=== PATIENT | female | born 1990 | race Caucasian/White ===

== ENCOUNTER 2022-05-28 15:58 | Outpatient (CLI) | payer OTHER, MEDICAID, SELFPAY ==
[2022-05-28] VITALS (13 sets, daily range): BP systolic 118–129; BP diastolic 62–85; PULSE 90–125; RESP 16–18; TEMP 36.6–36.8; O2SAT 93–99
--- NOTE | 2022-05-28 16:47 | CRLHL7_ITS ---
For Patients: As a result of the Century Cures Act, medical imaging exams and procedure reports are released immediately into your electronic medical record. You may view this report before your referring provider. If you have questions, please contact your health care provider. INDICATION: Cramping COMPARISON: none TECHNIQUE: Real time hernandez scale imaging of the fetus was performed. Without non-stress testing. FINDINGS: Sonographic imaging demonstrates a single living intrauterine gestation. Fetus demonstrates a regular cardiac rate of 154 beats per minute. Fetus has a vertex position. The amniotic fluid volume appears normal and there is a single deepest pocket measurement of 4.4 cm. The fetus was active and demonstrated normal breathing movements. There was normal flexion and extension of the trunk and extremities. The cervix is closed and measures 4.2 cm. IMPRESSION: Normal biophysical profile score of 8 out of 8. Closed cervix without funneling. Dictated by Richard Holcomb MD @ 05/28/2022 7:13:43 PM (Electronically Signed)
[2022-05-28 17:23] LABS: Appearance Urine Slightly Cloudy (Clear); Bilirubin Urine 1+ (Negative); Blood Urine Negative (Negative); Glucose Urine Negative (Negative); Ketones Urine 3+ (Negative); Leukocyte Esterase Urine Negative (Negative); Nitrite Urine Negative (Negative); Protein Urine 2+ (Negative); Specific Gravity Urine >= 1.030 (1.000-1.030)
[2022-05-28 17:27] LABS: Clue Cells <20% Clue Cells Seen (None Seen); Trichomonas No Trichomonas Seen (None Seen); Yeast No Yeast Seen (None Seen)
[2022-05-28 17:35] LABS: Color Urine Dark yellow (Yellow)
[2022-05-28 17:44] LABS: RBC Urine 0-2 (0-2); Squamous Epithelial Cell Urine Moderate (None-Few)
[2022-05-28 17:45] LABS: Bacteria Urine Few
[2022-05-28 17:46] LABS: Fetal Fibronectin* Negative (Negative)
[2022-05-28 17:49] LABS: Basophils Absolute Auto 0.02 K/uL (0.00-0.30); Basophils Percent Auto 0.2 % (0.0-3.0); Eosinophils Absolute Auto 0.07 K/uL (0.00-0.50); Eosinophils Percent Auto 0.8 % (0.0-7.0); Hematocrit 42.1 % (33.0-51.0); Hemoglobin* 14.4 gm/dL (12.0-16.0); Immature Granulocytes Abs Auto 0.09 K/uL (0.00-0.30); Immature Granulocytes Pct Auto 1.1 %; Lymphocytes Percent Auto 6.8 % (20-44); Mean Corpuscular HGB Conc 34 gm/dL (32-36); Mean Corpuscular Hemoglobin 28 pg (26-34); Mean Corpuscular Volume 83 fL (80-100); Monocytes Percent Auto 5.1 % (0.0-11.0); Platelet Count* 198 K/uL (140-440); RDW Coefficient of Variation % 13.2 % (11.5-15.5); Red Blood Count 5.09 m/uL (4.00-5.20); White Blood Count* 8.43 K/uL (4.50-11.00)
[2022-05-28 17:51] LABS: Slide Review Reflex No
[2022-05-28 18:04] LABS: Albumin* 4.1 g/dL (3.3-5.0); Chloride* 107 mmol/L (96-114); Potassium* 3.6 mmol/L (3.6-5.1); Sodium* 135 mmol/L (135-149)
[2022-05-28 18:06] LABS: Aspartate Amino Transferase* 22 U/L (12-35); Carbon Dioxide* 18 mmol/L (20-32); Creatinine* 0.4 mg/dL (0.5-1.5); Estimated Glomerular Filt Rate 134 ml/min; Total Protein* 8.1 g/dL (6.0-8.3)
[2022-05-28 18:07] LABS: Alanine Aminotransferase* 15 U/L (4-35); Alkaline Phosphatase* 89 U/L (40-150); Blood Urea Nitrogen* 7 mg/dL (5-24); Calcium* 8.9 mg/dL (8.4-10.6); Glucose* 84 mg/dL (60-115)
[2022-05-28] MEDS: ONDANSETRON 2 MG/ML inj 4 MG IV (18:18)
[2022-05-28] MEDS: LACTATED RINGERS 1000 ML 1,000 ML 300 ML IV (18:19)
--- NOTE | 2022-05-28 18:19 | P.OBHP_ITS ---
OB - H&P; HPI Antepartum History of Present Illness Time Seen by Provider: 18:19 Date Seen: 05/28/22 Chief complaint: Maternity Narrative: Mari Quispe is a 32 year old 3 para 2 at 31w6d gestation who presents with abdominal pain, back pain, vomiting. Patient states that she was in her usual state of health yesterday and had a baby shower. Today she woke with abdominal and back pain. She reports the abdominal pain is crampy. The back pain starts on the upper left and radiates to the lower mid back. She has vomited x 3 today. No diarrhea. No known sick contacts. She has not had fevers. Patient feels her baby is moving well. Had more vaginal discharge this morning (white) but no irritation/itching. She denies leakage of fluid or bleeding. She has not had intercourse in the last 24 hours. She has no history of labor. Does have history of macrosomia and this baby is measuring 88%ile. She feels like something is just not right. She does not have appetite. has been drinking water but admits her urine is still concentrated. History of Present Dating criteria: based on LMP care: good care Ultrasounds: normal mid trimester US Abnormal ultrasound findings: normal level 2 and echo complications comment: history of macrosomia Medical complications: none Review of Systems Const: Denies: fever or chills Eyes: Denies: change in vision ENMT: Denies: throat pain, neck pain or mouth pain Cardio: Reports: lightheadedness; Denies: chest pain, edema or shortness of breath with exertion Resp: Denies: shortness of breath GI: Reports: abdominal pain, nausea and vomiting; Denies: diarrhea or constipation : Reports: decreased urine ouput; Denies: painful urination, urinary frequency, urinary urgency or blood in urine Musculo: Reports: back pain; Denies: neck pain or extremity swelling Integ/Breast: Denies: rash or itching Neuro: Denies: headache Meds Home Medications and Allergies Allergies Allergy/AdvReac Type Severity Reaction Status Date / Time No Known Drug Allergies Allergy Verified 05/28/22 16:47 OB - H&P: Exam Physical Exam: Vital signs: Temp Pulse Resp BP Pulse Ox 98 F 100 16 118/62 98 05/28/22 16:11 05/28/22 17:46 05/28/22 16:11 05/28/22 17:46 05/28/22 17:43 Constitutional: Constitutional: no acute distress and obese Routine HEENT Exam: Head: Present atraumatic, normal inspection and normocephalic Routine Neck Exam: Neck: Present full ROM Routine Respiratory Exam: Respiratory: Present CTA bilaterally; Absent crackles or rales Routine Cardiovascular Exam: Cardiovascular: RRR, S1 and S2 Routine Abdominal Exam: Abdominal: Present normal bowel sounds, soft and tenderness Comments: minimally tender diffusely. No guarding/rebound Detailed Labor and Delivery Exam: Patient Gravid: Yes Routine Extremities Exam: Extremities: Present full ROM and normal inspection; Absent calf tenderness or joint swelling Routine Back/Spine/Pelvis Exam: Back/Spine: CVA tenderness Comments: Patient had CVA tenderness on left immediately after emesis, recheck CVA tenderness had resolved. NO other midline or paraspinal tenderness Routine Skin Exam: Present intact; Absent erythema Routine Neurological Exam: Present alert and oriented X3 OB - Results Labs Labs: Short CBC 05/28/22 Range/Units 17:42 WBC 8.43 (4.50-11.00) K/uL Hgb 14.4 (12.0-16.0) gm/dL Hct 42.1 (33.0-51.0) % Plt Count 198 (140-440) K/uL BMP 05/28/22 17:42 Sodium 135 Potassium 3.6 Chloride 107 Carbon Dioxide 18 L BUN 7 Creatinine 0.4 L Glucose 84 Calcium 8.9 Liver Function 05/28/22 Range/Units 17:42 Total Bilirubin 1.0 (0.1-1.5) mg/dL AST 22 (12-35) U/L ALT 15 (4-35) U/L Alkaline Phosphatase 89 (40-150) U/L Albumin 4.1 (3.3-5.0) g/dL Urine 05/28/22 Range/Units 16:58 Urine Color Dark yellow (Yellow) Urine Appearance Slightly Cloudy A (Clear) Urine pH 6.0 (5.0-8.5) Ur Specific [place] >= 1.030 (1.000-1.030) Urine Protein 2+ A (Negative) Urine Glucose (UA) Negative (Negative) Imaging OB US: Attestation: I have reviewed the pertinent imaging results. My impression: BPP 8/8. SDP 4.36. Cervix 4.2 cm OB - A/P Antepartum Assessment and Plan (1) Nausea and vomiting: Status: Acute (2) : Status: Acute (3) Abdominal pain affecting : Status: Acute (4) Back pain affecting : Status: Acute Plan Patient presented with abdominal and back pain, nausea, vomiting. She was having more BH contractions, not picked up on toco but reported by patient every 5-10 minutes. Baby initially had minimal variability and no accels. BPP was done and baby was 8/8. SDP was appropriate. Patient had labor rule out-- with negative FFN and cervical length of 4.2 cm. Patient had UA that appears very concentrated, not a very clean catch, but negative LE, Nitrite. Urine culture pending, no urinary symptoms. Patient had CVA tenderness that then resolved. Wet prep negative for infection. Given IV fluids and zofran. We discussed that hydration is very important and that dehydration can cause more contractions. Patient has zofran at home but has not used it yet, will use PRN. Additional Plan Plan: other (Discharge to home. Follow up with Dr Fuentes on )
--- NOTE | 2022-05-28 19:32 | PC.OBNST ---
NST Note NST Note Start: 05/28/22 15:35 Freq: ONCE Status: Active Protocol: Document 05/28/22 18:58 NAKIA (Rec: 05/28/22 19:00 NAKIA [id number]) NST Note 3 Para (# of births) 2 EDC 07/24/22 Gestational Age In Weeks & Days 31 Weeks & 6 Days Patient Presented with Complaint(s) of Contractions/cramping,Pain, Nausea and vomiting If Pain, describe location Lower back pain with abdominal cramping. Other Complaints Tavares Mcguire MD gave verbal order for patient to discontinue EFM . Reactive Yes Appropriate for Gestational Age Yes RN Tavares Deleon RN Date 05/28/22 Reactive Yes Appropriate for Gestational Age Yes BLAISE Ron RNC Date 05/28/22 OB NST charge Yes Complete NST Note via Write Note Yes The provider's electronic signature indicates the NST is reactive/appropriate for gestational age. *Note to provider: If an addendum is required, open the patient's chart and click on the note under the Nurse/Allied Health tab.
== END 2022-05-28 19:49 | disposition home or self-care (01) ==
LOC: OB OUT 15:59 → OB 16:00
PROVIDERS: Family Medicine; PCP Family Medicine; Visit Provider Family Medicine
DX: O26.899 Other specified pregnancy related conditions, unspecified trimester (principal); R11.2 Nausea with vomiting, unspecified; R10.9 Unspecified abdominal pain; M54.9 Dorsalgia, unspecified; Z3A.31 31 weeks gestation of pregnancy
CPT/HCPCS: 36415; 59025; 76817; 76819; 80053; 81003; 81015; 84112; 85025; 87086; 87210; 99213; J2405; J7120

== ENCOUNTER 2022-07-09 08:27 | Outpatient (CLI) | payer OTHER, MEDICAID, SELFPAY ==
[2022-07-09 08:38] VITALS: PULSE 93; O2SAT 98
[2022-07-09 08:43] VITALS: PULSE 104; O2SAT 98
[2022-07-09 08:48] VITALS: BP 102/58; PULSE 90; PULSE 91; O2SAT 98
[2022-07-09 08:55] VITALS: TEMP 36.8
--- NOTE | 2022-07-09 12:34 | PC.OBNST ---
NST Note NST Note Start: 07/09/22 08:26 Freq: ONCE Status: Discharge Protocol: Document 07/09/22 12:33 CIRILO (Rec: 07/09/22 12:34 CIRILO [id number]) NST Note 3 Para (# of births) 2 EDC 07/25/22 Gestational Age In Weeks & Days 37 Weeks & 5 Days Patient Presented with Complaint(s) of Contractions/cramping Reactive Yes Appropriate for Gestational Age Yes RN Paramjit RN Date 07/09/22 Reactive Yes Appropriate for Gestational Age Yes RN Tavares Holder RN Date 07/09/22 OB NST charge Yes Complete NST Note via Write Note Yes The provider's electronic signature indicates the NST is reactive/appropriate for gestational age. *Note to provider: If an addendum is required, open the patient's chart and click on the note under the Nurse/Allied Health tab.
== END 2022-07-09 10:45 | disposition home or self-care (01) ==
LOC: OB OUT 08:28 → OB 08:29
PROVIDERS: PCP Family Medicine; Visit Provider Family Medicine
DX: O47.1 False labor at or after 37 completed weeks of gestation (principal); Z3A.38 38 weeks gestation of pregnancy
CPT/HCPCS: 59025; 99213

== ENCOUNTER 2022-07-11 03:02 | Inpatient (IN) | payer OTHER, MEDICAID, SELFPAY ==
[2022-07-11] VITALS (47 sets, daily range): BP systolic 95–147; BP diastolic 45–81; PULSE 79–202; RESP 16–18; TEMP 36.6–37.2; O2SAT 16–99; BMI 41.1
[2022-07-11] MEDS: AMPICILLIN 2 GM in 0.9 % SODIUM CHLORIDE Mini-bag 100 ML IVPB (03:45)
[2022-07-11] MEDS: LACTATED RINGERS 1000 ML 1,000 ML 125 ML IV (03:45)
[2022-07-11] MEDS: ROPIVACAINE 0.2% 100 ml 100 ML 10 MG EPIDURAL (05:00)
[2022-07-11] MEDS: LIDOCAINE 2% (PF) 5 ML VIAL EPIDURAL (05:06)
--- NOTE | 2022-07-11 05:09 | PM.ANBPRC ---
PFSH PFSH Social History Smoking Status: Never smoker Meds Home Medications and Allergies Allergies Allergy/AdvReac Type Severity Reaction Status Date / Time No Known Drug Allergies Allergy Verified 05/28/22 16:47 Results Vital Signs Vital Signs: Last Vital Signs Pulse 129 H 07/11/22 05:08 BP 103/56 L 07/11/22 05:08 Pulse Ox 93 07/11/22 04:56 Weight: 108.862 kg Height: 162.56 cm Anesthesia Procedures Epidural Insertion Patient Location: OB Start Time: 04:40 Stop Time: 05:10 Start Date: 07/11/22 Stop Date: 07/11/22 Reason for Block: primary anesthetic Patient Position: sitting Performed By: [place] Preanesthetic Checklist: IV checked, risks and benefits discussed, surgical consent, monitors and equipment checked, pre-op evaluation, timeout performed and anesthesia consent Prep: chlorhexidine gluconate Monitoring: blood pressure monitoring, keypunch operators supervisor, continuous pulse oximetry and heart rate Approach: midline Vertebral Space: lumbar (1-5) Needle Type: Tuohy needle Injection Technique: continuous catheter (catheter) Needle gauge: 17 Needle Length (cm): 10 cm Needle Insertion Depth (cm): 8 Catheter Gauge: 19 Catheter Type: multi-orifice Catheter at skin depth (cm): 13 Test Dose Result: negative and lidocaine 1.5% with epinephrine 1 to 200,000
--- NOTE | 2022-07-11 05:24 | P.OBHP_ITS ---
OB - H&P: HPI Labor/Induction History of Present Illness Time Seen by Provider: 05:24 Date Seen: 07/11/22 Chief Complaint: The patient is a 32 year old 3 para 2 at 38 1/7 weeks gestation by LMP c/w 9wk US, who presents with SROM around 245am. Chief complaint: Maternity : 3 Para: 2 Date of last menstrual period: 10/17/21 Estimated date of delivery: 07/24/22 Gestational age based on last menstrual period: 38 Narrative: Mari Quispe is a 32 year old female at 38wks gestation by LMP c/w 9 wk US who presents with SROM clear fluid around 245am today. pt reports she has been devin about every 8 min since Sunday morning when she was seen in L&D triage. Was 3cm then and unchanged after monitoring and sent home. Pt reports contractions continued but remained mostly unchanged until SROM this morning. Since SROM, contractions have been increasing and were 7/10 when she arrived and 'almost 10' when got epidural. She is now much more comfortable having just received epidural. She reports feeling well otherwise. Good FM. no recent illness. No Headaches or vision changes. History of Present Dating criteria: based on LMP care: good care Ultrasounds: normal 1st trimester US, normal mid trimester US (level 2US anatomy with perinatology. EFW 88%. echo wnl.) and other (Growth US around 34wks EFW 2782 grams 6#2.1oz), percentile: 90. Large for gestational age.) complications: other (prepregnancy BMI 41. getting weekly BPP's) Labs Blood type: A (+) positive Rubella: immune RPR/VDLR: nonreactive GBS status: positive HBsAG: negative Meds Home Medications and Allergies Allergies Allergy/AdvReac Type Severity Reaction Status Date / Time No Known Drug Allergies Allergy Verified 05/28/22 16:47 OB - H&P: Exam Physical Exam: Vital signs: Pulse BP Pulse Ox 129 H 107/53 L 93 07/11/22 05:20 07/11/22 05:20 07/11/22 04:56 Constitutional: Constitutional: no acute distress and cooperative Routine HEENT Exam: Head: Present normal inspection Eye: Present normal appearance ENT: Present mucous membranes moist Routine Respiratory Exam: Respiratory: Present CTA bilaterally Routine Cardiovascular Exam: Cardiovascular: RRR Routine Exam: Comments: on admit 4cm per RN check Detailed Labor and Delivery Exam: Patient Gravid: Yes Fetus (Single): Heart Rate Baseline: 120 Monitor Accelerations: Present Monitor Decelerations: None Residential Variability: Moderate (6-25) Routine Neurological Exam: Present alert Routine Psychiatric Exam: Present normal affect, normal thought process and cooperative OB - Problem Based A/P Additional Plan (1) SROM (spontaneous rupture of membranes): Status: Acute (2) Term : Status: Acute Plan Known GBS positive, abx started per nursing around 345am. Requested and received epidural. Expectant management Delivery/Labor/Induction Plan Plan: expectant management
[2022-07-11] MEDS: PHENYLEPHRINE 100 MCG/ML SYRINGE IVP (06:12)
[2022-07-11] MEDS: OXYTOCIN 30 unit/500 ML in NS 30 UNIT/500 ML BAG 300 UNIT IVPB (06:49)
[2022-07-11 07:43] LABS: Basophils Absolute Auto 0.03 K/uL (0.00-0.30); Basophils Percent Auto 0.3 % (0.0-3.0); Eosinophils Absolute Auto 0.03 K/uL (0.00-0.50); Eosinophils Percent Auto 0.3 % (0.0-7.0); Hematocrit 37.1 % (33.0-51.0); Hemoglobin* 12.6 gm/dL (12.0-16.0); Immature Granulocytes Abs Auto 0.02 K/uL (0.00-0.30); Immature Granulocytes Pct Auto 0.2 %; Lymphocytes Percent Auto 7.4 % (20-44); Mean Corpuscular HGB Conc 34 gm/dL (32-36); Mean Corpuscular Hemoglobin 28 pg (26-34); Mean Corpuscular Volume 83 fL (80-100); Monocytes Percent Auto 5.8 % (0.0-11.0); Platelet Count* 199 K/uL (140-440); RDW Coefficient of Variation % 13.6 % (11.5-15.5); Red Blood Count 4.48 m/uL (4.00-5.20); White Blood Count* 10.96 K/uL (4.50-11.00)
[2022-07-11 07:49] LABS: Slide Review Reflex No
--- NOTE | 2022-07-11 08:08 | PM.OBPRCVD ---
Procedure Delivery date: 07/11/22 Procedure Done: Global Procedure Details: Procedures The patient is a 32 year-old admitted on 07/11/22 at 38 Weeks, 1 Days gestation for SROM at 245 at home.? Cervical exam on admission was 4 cm with membranes ruptured in vertex presentation.? Contractions were every 4 minutes.? heart rate demonstrated baseline 130 bpm with moderate variability, + accelerations, - decelerations; a category 1 tracing.? SROM occurred at 245am with clear fluid. ? Labor Analgesia:? Epidural ? Pitocin:? no ? Labor onset:? 0345 ? Complete:? 0638 ? Pushing:? 0645 ? heart tones during second stage were 140's, decreased with pushing, recovered between. ? At 0648 a viable male infant delivered in vertex presentation over intact perineum via spontaneous vaginal delivery.? Infant was placed on maternal abdomen.? Cord was clamped and cut after a 60+ second delay.? Nose and mouth were bulb suctioned.? w8#3oz.? 8 at 1 minute and 9 at 5 minutes.? Shoulder dystocia: no.? Nuchal cord: yes, loose x 1, reduced at delivery. ? Active management of placenta was performed. Pitocin given. Placenta delivered spontaneously and complete at 0650 with a 3 vessel cord. ? Mother and infant were stable after delivery. ? Lacerations:? right periurethral superficial abrasion noted, hemostatic and did not require repair. Posterior cervical laceration (see below) Patient QBL was 125 and nurse was cleansing perineum and noted increase bleeding. Cytotec was given rectally. I reexamined and appeared like coming from posterior cervical area. Weight speculum placed and ring forceps used and posterior cervical laceration noted with some bleeding. Dr Goode medical receptionist assistant OB surgeon noticed and recommended placing a packing with plan to take to OR for repair. Packing placed. Pt comfortable with epidural. No ? Blood loss: 150 mL. Blood loss measurement type: QBL ? Sponge and needles counts are correct. Delivery monitor: external FHT Route of delivery: Laceration description: Superficial (right periurethral ) Delivery repair: other (Dr Goode repared posterior cervical laceration in OR, see her note for details) Estimated blood loss (mL): 125 Anesthesia type: Epidural Gender: Male presentation: vertex Placental Delivery Description: Spontaneous Cord Description: 3 Vessels, Nuchal Cord and Loose total score - 1 minute: 8 total score - 5 minute: 9
[2022-07-11 08:12] LABS: SARS PCR* Negative SARS-CoV-2 (Negative)
--- NOTE | 2022-07-11 09:02 | SUR.OPER ---
PATIENT QUESTIONS ANSWERED SATISFACTORILY PREOPERATIVELY. PATIENT BROUGHT TO OR #5 PER CART. Patient positioned supine on OR #5 bed. Pt. then moved into the lithotomy position for the procedure. ? Final approval of positioning by surgeon.
[2022-07-11] MEDS: ACETAMINOPHEN 500 MG TABLET 1000 MG PO ×2 (09:26→16:28)
--- NOTE | 2022-07-11 09:56 | W.PM.GYNPROC ---
Procedure Note Date Seen: 07/11/22 Procedure Details: PREOPERATIVE DIAGNOSIS: 1. follow spontaneous vaginal delivery. 2. Cervical laceration, actively bleeding. POSTOPERATIVE DIAGNOSIS: 1. follow spontaneous vaginal delivery. 2. Cervical laceration, repaired. PROCEDURE: 1. Examination under anesthesia. 2. Cervical laceration repair. SURGEON: Russel. REFERRING PROVIDER: Gina. ANESTHESIA: Epidural. COMPLICATIONS: None. ESTIMATED BLOOD LOSS: 132 mL. FINDINGS: 3 actively bleeding cervical lacerations, at the 9:00 a.m., 7:00 a.m., and 6:00 a.m. positions. INDICATION: The patient is a 32-year-old 3 now para 3003 who is status post a normal spontaneous vaginal delivery at 0648 of an 8 lb 3 oz male . The delivery was uncomplicated. Initial QBL was 125 mL. Following the delivery, there was some increased bleeding noted, initially thought to be due to uterine atony. Rectal Cytotec was administered, and an examination was performed. The patient was found to have a posterior cervical laceration that was actively bleeding. I was consulted for laceration repair and recommended proceeding to the OR. The laceration was packed with two moistened laparotomy sponges while I was enroute. PROCEDURE NOTE: The patient was taken to the operating room with IV and epidural running. She was placed in the dorsal lithotomy position and prepared and draped sterilely. I removed the vaginal packing (2 laparotomy sponges). A weighted vaginal speculum was placed. A Winters retractor was used to retract the anterior vaginal compartment. The cervix was carefully inspected and was found to be actively bleeding from 3 separate lacerations sites. All 3 laceration sites were suture ligated with figure of X sutures of 3-0 chromic. Hemostasis was visualized. At the conclusion of the procedure, the only vaginal bleeding noted was some dark red blood from the uterus consistent with normal lochia. The patient tolerated the procedure well. Sponge, lap, needle, and instrument counts were reported as correct x2. The patient was taken to the recovery room awake and in stable condition.
[2022-07-11] MEDS: IBUPROFEN 600 MG TABLET PO ×2 (14:27→20:37)
[2022-07-12 00:55] VITALS: BP 111/72; PULSE 81; RESP 16; TEMP 36.8
[2022-07-12] MEDS: ACETAMINOPHEN 500 MG TABLET 1000 MG PO ×2 (02:16→19:57)
[2022-07-12 05:45] VITALS: BP 106/63; PULSE 81; RESP 16; TEMP 36.6
--- NOTE | 2022-07-12 06:53 | P.OBPN_ITS ---
OB - PN:Subj Subjective Time Seen by Provider: 06:53 Date Seen: 07/12/22 Interval history: Pt had yesterday morning. no concerns. . Lochia mild. Ambulating. tolerating orals. Patient comments OB post-: no complaints status: feeding status: exclusively OB - PN: Obj Exam Physical Exam: Vital signs: Temp Pulse Resp BP Pulse Ox O2 Del Method 97.8 F 81 16 106/63 98 07/12/22 05:45 07/12/22 05:45 07/12/22 05:45 07/12/22 05:45 07/11/22 16:20 07/12/22 05:45 Constitutional: Constitutional: no acute distress Routine Abdominal Exam: Fundus: Present firm (1cm below umbilicus per recent nursing check) OB - PN: Obj Data Labs Labs: Laboratory Results - last 24 hr 07/11/22 07/11/22 07/11/22 07:30 07:30 07:32 WBC 10.96 RBC 4.48 Hgb 12.6 Hct 37.1 MCV 83 MCH 28 MCHC 34 RDW Coeff of Minnie 13.6 Plt Count 199 Neut % (Auto) 86.0 H Lymph % (Auto) 7.[address] [place] % (Auto) 5.8 Eos % (Auto) 0.3 Baso % (Auto) 0.3 Neut # (Auto) 9.40 H Lymph # (Auto) 0.[address] [place] # (Auto) 0.60 Eos # (Auto) 0.03 Baso # (Auto) 0.03 SARS-CoV-2 (PCR) Negative SARS-CoV-2 Blood Type A Positive Antibody Screen NEGATIVE OB - PN: A/P Vaginal Delivery Assessment and Plan (1) SROM (spontaneous rupture of membranes): Status: Acute (2) Term : Status: Acute Plan Plan: routine care Comments: PPD1, doing well. Plan likely d/c home tomorrow as keeping infant 48hours due to known +GBS with inadequate abxs
[2022-07-12 07:18] LABS: Hemoglobin* 11.2 gm/dL (12.0-16.0)
[2022-07-12 08:00] VITALS: BP 122/82; PULSE 88; RESP 18; TEMP 36.6; O2SAT 97
[2022-07-12] MEDS: IBUPROFEN 600 MG TABLET PO (15:46)
[2022-07-12 16:15] VITALS: BP 128/80; PULSE 88; RESP 18; TEMP 36.7; O2SAT 97
[2022-07-12] MEDS: DOCUSATE SODIUM 100 MG CAPSULE PO (19:58)
[2022-07-12 23:53] VITALS: BP 116/72; PULSE 75; RESP 16; TEMP 36.6; O2SAT 96
[2022-07-13] MEDS: IBUPROFEN 600 MG TABLET PO (00:03)
[2022-07-13 07:22] VITALS: BP 131/75; PULSE 76; RESP 16; TEMP 36.8; O2SAT 97
--- NOTE | 2022-07-13 08:03 | PM.OBDSVD1 ---
DS: Providers Provider Time Seen by Provider: 08:03 Date Seen: 07/13/22 Date of admission: 07/11/22 03:02 Primary care physician: Jillian Fuentes DO Admitting Clinician: Jillian Fuentes DO Consults: professor of nursing, Dr. Tamera Goode Attending Physician on discharge: Jillian Fuentes DO Date of Discharge: 07/13/22 DS: Diagnosis Discharge Diagnosis (1) Cervical laceration: Status: Acute (2) Term : Status: Acute (3) SROM (spontaneous rupture of membranes): Status: Acute Exam Narrative: Exam Narrative: GEN: Well-appearing adult female. Alert, oriented and appropriate. Sitting alongside hospital bed, nursing HEENT: EOMI, no conjunctival injection or discharge. MMM. Neck: Supple. CV: RRR, no rubs,murmurs or extra heart sounds. Pulm: CTAB, no wheezes, rales or rhonchi. Abdomen: Soft, non-distended. Uterine fundus 1 cm below the umbilicus. MSK: Moving all extremities. Extremities: Warm and well-perfused. No LE edema Neuro: No focal deficits. Grossly normal strength and sensation. Psych: Normal affect. Const: Vital Signs, click to edit/add: Vital Signs - 24 hr 07/12/22 16:15 07/12/22 23:53 07/13/22 07:22 Temperature 98.1 F 97.9 F 98.2 F Pulse Rate [Pulse Oximeter] 88 75 76 Respiratory Rate 18 16 16 Blood Pressure [Le ft Arm] 128/80 116/72 131/75 Pulse Oximetry 97 96 97 Oxygen Delivery Me thod Room Air Room Air Room Air OB - DS: Summary Hospital Course Hospital Course: The patient is a 32 year old G 3 P 2 at 38+1 weeks gestation that was admitted to the Center on 07/11/22 for SROM and contractions. GBS positive and received inadequate abx prior to delivery. She had an uncomplicated vaginal delivery. Required repair of cervical laceration shortly after delivery with associate professor of mathematics. She delivered a viable male infant. She is breast feeding. the patient has done well. Peripartum Data delivery method: Vaginal Episiotomy description: None Procedures: Procedures Operation Date: 07/11/22 10:10 Actual Procedure Side Surgeon p CERVICAL Laceration Repair Tamera Goode MD complications: none Gender: Male Infant Discharge Plan: Home Status at Discharge Functional status at discharge: independent ambulation Time Spent with Patient Time attestation: Total time spent providing and/or coordinating discharge services: Discharge Plan Discharge Disposition: Home, Self-Care Date of Admission: 07/11/22 03:02 Primary Care Provider: Jillian Fuentes Condition: Stable Anticipated Discharge Date/Time: 07/13/22 08:00 Discharge Medications: New acetaminophen 500 mg Tablet 1,000 mg PO Q6H PRN30 Days Qty: 30 0RF docusate sodium 100 mg Capsule 100 mg PO DAILY 30 Days Qty: 30 0RF ibuprofen 600 mg Tablet 600 mg PO Q6H PRN30 Days Qty: 30 0RF Continued vitamin B complex [B Complex-Vitamin B12] Tablet 1 tab PO DAILY PNV cmb#95-ferrous fumarate-FA [] 28 mg iron- 800 mcg tablet 1 tab PO DAILY Discharge Orders: Discharge Order (Routine); Ordered 07/13/22 Ordered By: Elly Marks Patient Education: OB Vaginal/Breast Feeding Activity Level: Activity as Tolerated Discharge Diet: Regular Follow Up Appointments: Jillian Fuentes, [Primary Care Provider] - (6 weeks post-) Forms: [facility] Info Instructions
[2022-07-13] MEDS: DOCUSATE SODIUM 100 MG CAPSULE PO (09:09)
== END 2022-07-13 10:00 | disposition home or self-care (01) | DRG 768 ==
LOC: OB OUT 03:03 → OB 03:03
PROVIDERS: Obstetrics & Gynecology; Admitting Provider Family Medicine; PCP Family Medicine; Visit Provider Family Medicine
PROC: 0UQG0ZZ Repair Vagina, Open Approach (ICD-10-PCS; principal; 2022-07-11 10:00)
DX: O99.824 Streptococcus B carrier state complicating childbirth (principal); Z37.0 Single live birth; O71.3 Obstetric laceration of cervix; O71.82 Other specified trauma to perineum and vulva; Z3A.38 38 weeks gestation of pregnancy
CPT/HCPCS: 01967; 36415; 85018; 85025; 86850; 86900; 86901; 87635; 99213; A9270; J0290; J2795; J7120

== ENCOUNTER 2024-06-14 05:12 | Emergency (ER) | payer BC, SELFPAY ==
--- OUTSIDE RECORDS SUMMARY | 2024-06-14 05:14 | XMS_ITS | Encounter Summary ---
[facility] [address] [place] [address] Care Team Providers Care Environmental Assistant Name Role Phone Zarina Tapia MD Primary Care Provider [phone] Encounter Details Date Type Department Care Team (Late st Contact Info) Description 02/12/2003 [facility] [employer] OPERATOR [address] [place] [address] Dana Rolon [facility] [address] [place] [address] DEL W 2 DEG LACERAT-DEL Social History Tobacco Use Types Packs/Day Years Used Date Smoking Tobacco: Never Alcohol Use Standard Drinks/Week Comments No 0 (1 standard drink = 0.6 oz pur e alcohol) Sex and Gender Information Value Date Recorded Sex Assigned at Not on file Gender Identity Not on file Sexual Orientation Not on file documented as of this encounter Plan of Treatment Not on file documented as of this encounter Visit Diagnoses Diagnosis Second-degree perineal laceration, with delivery documented in this encounter Additional Health Concerns Infection Onset Date Last Indicated Resolved Time R/O COVID19 05/30/2021 05/30/2021 05/30/2021 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
--- OUTSIDE RECORDS SUMMARY | 2024-06-14 05:14 | XMS_ITS | Clinical Summary ---
Author Organization [facility] Address [address] [place] [id number] Care Team Providers Care Manager Cardiology Name Role Phone No Ref-Primary, Physician Primary Care Provider Social History Tobacco Use Types Packs/Day Years Used Date Smoking Tobacco: Never Assessed Adolescent Education Answer Date Record ed Getting School Help Needed Not on file 02/18 Comments Unknown Sex and Gender Information Value Date Recorded Sex Assigned at Not on file Legal Sex Female 4:20 AM [employer] Gender Identity Not on file Sexual Orientation Not on file Plan of Treatment Not on file Care Teams Manager Cardiology Relationship Specialty Start Date End Date No Ref-Primary, Physician PCP - General 03/23/21
--- OUTSIDE RECORDS SUMMARY | 2024-06-14 05:14 | XMS_ITS | Referral Summary ---
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
--- OUTSIDE RECORDS SUMMARY | 2024-06-14 05:14 | XMS_ITS | Clinical Summary ---
Author Organization [employer] [facility] Address [place], [place] [address] Care Team Providers Care Customer Experience Manager Name Role Phone MishelannaJillian Tamia DO Unavailable [phone] Elly Marks MD Primary Care Provider [phone] Allergies No known active allergies Medications semaglutide, weight loss, (Wegovy) 1 mg/0.5 mL subcutaneous penIndications:C lass 3 severe obesity with body mass index (BMI) of 40.0 to 44.9 in adult, unspecified obesity type, unspecified whether serious comorbidity present (HC) Inject 1 mg subcutaneous once weekly. 2 mL 05/20/19 25 Active semaglutide, weight loss, (Wegovy) 1.7 mg/0.75 mL subcutaneous penIndications:C lass 3 severe obesity with body mass index (BMI) of 40.0 to 44.9 in adult, unspecified obesity type, unspecified whether serious comorbidity present (HC) Inject 1.7 mg subcutaneous once weekly. 3 mL 06/17/19 25 Active semaglutide, weight loss, (Wegovy) 2.4 mg/0.75 mL subcutaneous penIndications:C lass 3 severe obesity with body mass index (BMI) of 40.0 to 44.9 in adult, unspecified obesity type, unspecified whether serious comorbidity present (HC) Inject 2.4 mg subcutaneous once weekly. 9 mL 1 07/16/19 25 Active semaglutide, weight loss, (Wegovy) 0.5 mg/0.5 mL subcutaneous penIndications:C lass 3 severe obesity with body mass index (BMI) of 40.0 to 44.9 in adult, unspecified obesity type, unspecified whether serious comorbidity present (HC) Inject 0.5 mg subcutaneous once weekly. 2 mL 04/14/20 24 025 Discontin ued(*Med complete/ Regimen complete/ Level of care change) Active Problems Problem Noted Date Diagnosed Date Pap smear of cervix with ASCUS, cannot exclude H GSIL 07/09/2019 Overview (03/24/2024): 06/2019 ASCUS/HPV+ 08/2020 LSIL/HPV+ 08/2020 [place]: Biopsy SUZANNA 1, ECC Insufficient 08/2021 ASC-H /HPV+, HPV 16/18 negative 09/2021 [place]: Biopsy Benign, ECC Benign 08/2022 ASCUS/HPV+, HPV 16/18 negative 12/2022 [place]: Biopsy Suggestive of SUZANNA 1 02/2024 LSIL/HPV+ , 16/18 negative Plan: Pap/HPV due 02/2025 Episcleritis, right 10/01/2018 Chemosis of conjunctiva subconjunctival edema, r ight 10/01/2018 Regular astigmatism, bilateral 06/19/2018 Myopia, bilateral 06/19/2018 Obesity, unspecified 06/02/2011 Vitamin D deficiency 06/02/2011 Hidradenitis suppurativa 12/06/2009 Overview (06/04/2012): Has had axillary surgeries, Dr. Cormier; Resolved Problems Problem Noted Date Diagnosed Date Resolved Date Obesity complicating pregnan cy, second trimester 03/06/2022 03/13/2024 care in first trimester 12/22/2021 03/13/2024 Overview (07/02/2022): Dating by LMP c/w 9wk US History fast delivery: Last delivery pushed 3-4 times. GBS POSITIVE Has had 9# baby BMI >40 prepregnancy, discussed recommendation for level 2 with echocardiogram, anesthesiology consult and OB consult in 3rd trimester per protocol. Echo 03/06/22 - normal Level 2 US 03/06/22: Intrauterine at 20w 0d. presentation is Transverse, head to maternal left. EFW 384 grams, percentile: 88. Growth parameters and estimated weight are appropriate for gestational age. No major structural anomalies identified. No markers for aneuploidy identified. The echocardiogram was read by [facility] as normal. Normal Deepest Vertical Pocket of amniotic fluid: 6.31 cm. Placental location: Anterior There is no evidence of placenta previa. The cervical length is 3.4 cm. RECOMMENDATIONS Return to primary provider for continued care. Growth ultrasounds at 28 and 34 weeks due to BMI >40 (scheduled at [facility]) Weekly BPP/NST starting at 32 weeks (not currently scheduled at [facility]) Deliver after 39 weeks Growth US 05/01/22 EFW >87th% RECOMMENDATIONS: -Return to primary OB provider for continued care. -No alterations in the delivery plan are necessary at this time. -No medication changes are indicated. -BPPs or NSTs are suggested and already scheduled with patients primary provider starting 32 weeks - F/u growth is scheduled between 34-35 weeks on 06/12 Estimated Date of Delivery: 07/24/22 Patient's last menstrual period was 10/17/2021. Last Tdap- 10/30/2019 Last Flu vaccine- 01/23/2022 Glucose (GTT) result- too early No Known Allergies OB History Para Term AB Living 3 2 2 0 0 2 SAB IAB Ectopic Multiple Live Births 0 0 0 0 2 # Outcome Date GA Lbr Alex/2nd Weight Sex Delivery Anes PTL Lv 3 Current 2 Term 01/26/20 39w3d / 00:16 4.09 kg (9 lb 0.3 oz) F Vag MADI Name: BG EULALIO HOYT Apgar1: 8 Apgar5: 9 1 Term 11/20/07 41w0d 4 kg (8 lb 13 oz) F Vag MADI Name: Analisa Create lab flowsheet for OB labs- Component Latest Ref Rng & Units 12/22/2021 12/22/2021 12/22/2021 8:46 AM 8:46 AM 8:46 AM ANTIBODY SCREEN Negative Negative SPECIMEN EXPIRATION DATE/TIME 12/25/21 23:59 HEMOGLOBIN 12.0 - 16.0 g/dL 13.6 MCV 80 - 100 fL 82 PLATELET COUNT 140 - 440 thou/cu mm 251 MPV 6.5 - 11.0 fL 10.2 RUBELLA IGG ANTIBODY Positive 3.31 ABORH A Rh Positive HBSAG Nonreactive Nonreactive HEPATITIS C ANTIBODY Non-Reactive Non-Reactive HIV-1/HIV-2 ANTIBODY Non-Reactive Non-Reactive TREPONEMA PALLIDUM Negative Negative Past Medical History: . Date Hidradenitis axillaris recurrent IUD Mirena, placed 10/26/08, removed 06/01/11 Normal delivery 11/20/2007 Obesity, unspecified Pap smear of cervix with ASCUS, cannot exclude HGSIL 08/2021 ASCH/HPV+, HPV 16/18 Negative. PLAN: Pap/HPV due 09/2022 Varicella without mention of complication Chickenpox Vitamin D deficiency 02/2011 Past Surgical History: . Laterality Date (IA) WA LAP CHOLECYSTECTOMY 04/07/2011 CHOLECYSTECTOMY COLPOSCOPY 08/25/2020 SUZANNA I COLPOSCOPY 09/2021 benign biopsies left axilla excision hidranitis 01/19/2012 surgery right axilla 2005,2009 infected cyst, right, x 2 No data on file. Problems (from 11/16/21 to present) No problems associated with this episode. Mandy Gurrola RN.....12/26/2021 11:24 AM (normal spontaneous vaginal delivery) 01/26/2020 03/13/2024 Breech presentation with problem 12/01/2019 01/26/2020 Vaginitis 03/09/2014 07/11/2019 Routine gynecological examination 06/04/2012 07/11/2019 Overview (06/04/2012): Last pap smear: 06/04/2012: Last DTAP: 2007; Last Lipid: 2010 normal, low HDL; Last TSH: Last FBS: Last mammogram: Last Colonoscopy: Last bone density scan: Contraception 09/15/2011 07/11/2019 Overview (09/15/2011): Mirena IUD removed: 06/01/11; wanted to delay ; requests to restart oral contraceptive pill, Sprintec, 09/15/11 care and examinat ion of lactating mother 11/21/2007 06/02/2011 Normal delivery 11/20/2007 06/02/2011 Supervision of normal first 08/15/2007 11/20/2007 Maternal morbid obesity, ant epartum, third trimester 03/13/2024 Excessive growth affec ting management of mother, antepartum 03/13/2024 Encounters Date Type Department Care Team Description 06/11/2024 12:40 PM TRACTOR TRAILER TECHNICIAN Office Visit [facility] [address] [place] [address] Elly Marks MD Weight (Following up on Wegovy, 1 MG/) 06/10/2024 Travel 04/30/2024 12:40 PM TRACTOR TRAILER TECHNICIAN Office Visit [facility] [address] [place] [address] Elly Marks MD Medication Management (Wegovy, feels good) 04/30/2024 Travel 04/14/2024 Refill [facility] [address] [place] [address] Elly Marks MD Refill Request (Wegovy) 04/09/2024 1:45 PM TRACTOR TRAILER TECHNICIAN Ancillary Procedure [facility] [address] [facility] [address] [place] [address] 04/09/2024 1:20 PM TRACTOR TRAILER TECHNICIAN Office Visit [facility] [address] [facility] [address] [place] [address] Feli Perez MBBS Consult (HPV abn pap 03/13/2024) 04/09/2024 Travel 04/08/2024 Travel 04/08/2024 Refill [facility] [address] [facility] [place] [address] Elly Marks MD Refill Request (Wegovy) 03/20/2024 Telephone [facility] [address] [facility] [place] [address] Elly Marks MD Pap Plan 03/18/2024 Telephone [facility] [address] [place] [address] Elly Marks MD Prior Authorization (semaglutide (Wegovy) 0.25 mg/0.5 mL subcutaneous pen (DENIED)) 03/15/2024 Travel from Last 3 Months Immunizations Name Administration Dates Next Due COVID-19 vaccine (Moderna 100mcg/0.5mL) PF, MDV 07/16/2020,06/18/2020 DTP 08/20/1993, 1,1989,1989,1989 Hepatitis B (Peds) 01/08/1996,07/31/1995, 991 Hib Conjugate, Unspecified 05/08/1991 Influenza, IIV3 (Age >=3 years) 04/09/2019,06/04 Influenza, IIV4 01/23/2022,01/24/2021 MMR 01/08/1996,10/05/1990 Oral Polio Vaccine 05/08/1991, 0,1989,1988 Td (Age >=7 Years) 01/23/2002 Tdap 05/03/2022, 0,11/25/2018,2007 Family History Medical History Relation Name Comments Good Health Brother 1 Unknown Brother 2 1/2 Unknown Brother 3 1/2 Diabetes Father type 2 Unknown Maternal Grandfather Diabetes Maternal Grandmother Hyperlipidemia Maternal Grandmother Diabetes Mother Hyperlipidemia Mother Unknown Paternal Grandfather Unknown Paternal Grandmother Diabetes Paternal Uncle Unknown Sister 1 1/2 Unknown Sister 2 1/2 Unknown Sister 3 1/2 Relation Name Status Comments Brother 1 Brother 2 1/2 Alive Brother 3 1/2 Alive Father Alive Maternal Grandfather Maternal Grandmother Mother Alive Paternal Grandfather Paternal Grandmother Paternal Uncle Sister 1 1/2 Alive Sister 2 1/2 Alive Sister 3 1/2 Alive Social History Tobacco Use Types Packs/Day Years Used Date Smoking Tobacco: Never Passive Smoke Exposure: Never Smokeless Tobacco: Never Tobacco Cessation:Counseling Given: Yes Alcohol Use Standard Drinks/Week Comments Not Currently 0 (1 standard drink = 0.6 oz pur e alcohol) PHQ-2 Answer Date Recorded PHQ-2 TOTAL SCORE 0 04/09/2024 Social Connections Answer Date Recorded Do you often feel lonely or isolated from those around you? 0 03/09/2024 Alcohol Use Answer Date Recorded How often do you have a drink containing alcohol ? 2 08/24/2021 How many drinks containing a lcohol do you have on a typical day when you are drinking? 0 08/24/2021 How often do you have five or more drinks on one occasion? 0 08/24/2021 Financial Resource Strain Answer Date R ecorded Difficulty of Paying Living Expenses 3 03/09/2024 Difficulty of Paying Living Expenses Not on file 03/09/2024 Food Insecurity Answer Date Recorded Do you worry your food will run out before you are able to buy more? 1 03/09/2024 Transportation Needs Answer Date Record ed Does lack of transportation keep you from medica l appointments? 1 03/09/2024 Does lack of transportation keep you from work, meetings or getting things that you need? 1 03/09/2024 Housing Stability Answer Date Recorded What is your housing situation today? 1 03/09/2024 Utilities Answer Date Recorded Do you have trouble paying f or utilities (for example, heat, electricity, water, phone)? 1 03/09/2024 Comments No Sex and Gender Information Value Date Recorded Sex Assigned at Not on file Legal Sex Female 7:26 AM TRACTOR TRAILER TECHNICIAN Gender Identity Not on file Sexual Orientation Not on file Occupation Industry Job Start Date Job End Date [employer] Medicine Not on file Not on file Not o n file Obstetrics History Para Term AB IAB SAB Ectopic Multiple Livin g Live Births 3 3 3 2 2 Date Outcome GA Total Labor Labor/2nd/3rd Weight Sex Type Anes PTL Madi A1 A5 Name Clin 008 Term 41w 0d 4 kg (8 lb 13 oz) F Vag Livin g Magdaleno Lin Delivery Location:[facility] 020 Term 39w 3d 0h 16m/0h 08m 4.09 kg (9 lb 0.3 oz) F Vag Livin g 8 9 FIGUER OA,BG EULALIO Delivery Location:[facility] (UTD 2000 MB L&D TRIAGE) 023 Term 38w 1d 3.71 kg (8 lb 3 oz) M Vag Last Filed Vital Signs Vital Sign Reading Time Taken Comments Blood Pressure 104/71 06/11/2024 12:43 PM TRACTOR TRAILER TECHNICIAN Pulse 76 06/11/2024 12:43 PM TRACTOR TRAILER TECHNICIAN Temperature 36.8 C (98.2 F) 01/24/2022 2:06 PM CDT Respiratory Rate 18 01/24/2022 2:06 PM CDT Oxygen Saturation 100% 06/11/2024 12: 43 PM TRACTOR TRAILER TECHNICIAN Inhaled Oxygen Concentration - - Weight 108.7 kg (239 lb 9.6 oz) 06/11/2024 12:43 PM TRACTOR TRAILER TECHNICIAN patient reported Height 160 cm (5' 2.99) 03/13/2024 3:5 3 PM CDT Body Mass Index 42.45 03/13/2024 3:53 PM CDT Plan of Treatment Scheduled Procedures Name Priority Associated Diagnoses Date/Ti me SURGICAL PROCEDURE (TYPE PROCEDURE DESCRIPTION BELOW) Tier 2 Cervical high risk human papillomavirus (HPV) DNA test positive Menorrhagia with regular cycle Health Maintenance Due Date Last Done Comments COVID-19 vaccine series ( season) 2024 07/16/2020, 06/18/2020 Influenza for age 9-49 01/13/2024 2, 01/24/2021, 04/09/2019, Additional history exists BMI (ht and wt on same day) for age 18+ 03/13/2025 03/13/2024, 12/21/2022, 10/03/2021, Additional history exists Pap test for age 21-65 03/13/2025 4, 12/21/2022 (Verified in Care Everywhere or Patient Record), 08/22/2022, Additional history exists Depression screening for age 12+ 04/09/2025 04/09/2024, 04/08/2024, 08/22/2022, Additional history exists Tetanus booster 05/03/2032 05/03/2022, 10/12, 11/25/2018, Additional history exists HIV for age 15-65 Completed 12/22/2021, 07/09/2019 Hepatitis C screening for age 18-79 Completed 12/22/2021 Tdap Completed 05/03/2022, 10/12, 11/25/2018, Additional history exists Pneumococcal series for age 6-49 Aged Out No longer eligible based on patient's age to complete this topic Procedures Procedure Name Priority Date/Time Associated Diagnosis Comments US PELVIS COMPLETE TV Routine 04/09/2024 2:20 PM TRACTOR TRAILER TECHNICIAN Cervical high risk human papillomavirus (HPV) DNA test positive Unwanted fertility Menorrhagia with regular cycle TURBINE ATTENDANT THIN PREP PAP AND HPV DNA - AGE 25 AND OVER ([facility]) Routine 03/13/2024 5:09 PM CDT Screening for cervical cancer ANTI HIV 1/2 Routine 12/22/2021 8:46 AM CDT 4 weeks gestation of ANTI HCV Routine 12/22/2021 8:46 AM CDT 4 weeks gestation of from Last 3 Months or Most Recently Relevant to Health Maintenance Results * US PELVIS COMPLETE TV (04/09/2024 2:20 PM TRACTOR TRAILER TECHNICIAN) Anatomical Region Laterality Modality Pelvis, OVARIES, UTERUS Ultrasou nd 04/12/2024 1:19 PM TRACTOR TRAILER TECHNICIAN Impressions 04/12/2024 1:19 PM TRACTOR TRAILER TECHNICIAN 1. 1.7 cm hemorrhagic cyst in the left ovary. Otherwise unremarkable ultrasound evaluation of the pelvis. Dictated by Tin Malloy MD @ 04/12/2024 1:19:24 PM (Electronically Signed) Narrative 04/12/2024 1:19 PM TRACTOR TRAILER TECHNICIAN For Patients: As a result of the Century Cures Act, medical imaging exams and procedure reports are released immediately into your electronic medical record. You may view this report before your referring provider. If you have questions, please contact your health care provider. HISTORY: Menorrhagia. TECHNIQUE: Transabdominal and transvaginal grayscale and color ultrasound of the pelvis was performed. The transvaginal exam was necessary for further evaluation of the gynecologic structures. COMPARISON: Pelvic ultrasound 04/12/2019. FINDINGS: Uterus measures 8.1 x 3.5 x 3.9 cm. Myometrium is heterogeneous in appearance. Previously seen fundal uterine fibroid is not visualized on current exam. The endometrial stripe in double layer thickness measures 0.6 cm, normal. The right ovary measures 2.8 x 1.6 x 1.4 cm. The left ovary measures 2.8 x 1.9 x 3 cm. Normal color Doppler flow is demonstrated in both ovaries. 1.5 x 1.2 x 1.7 cm hemorrhagic cyst in the left ovary. There are no ovarian masses. There is no significant free pelvic fluid. Procedure Note Tin Malloy MD - 04/12/2024 For Patients: As a result of the Cures Act, medical imagingexams and procedure reports are released immediately into your electronicmedical record. You may view this report before your referring provider.If you have questions, please contact your health care provider. HISTORY: Menorrhagia. TECHNIQUE: Transabdominal and transvaginal grayscale and color ultrasound of thepelvis was performed. The transvaginal exam was necessary for furtherevaluation of the gynecologic structures. COMPARISON: Pelvic ultrasound 04/12/2019. FINDINGS: Uterus measures 8.1 x 3.5 x 3.9 cm. Myometrium is heterogeneous inappearance. Previously seen fundal uterine fibroid is not visualized oncurrent exam. The endometrial stripe in double layer thickness measures0.6 cm, normal. The right ovary measures 2.8 x 1.6 x 1.4 cm. The left ovary measures 2.8 x1.9 x 3 cm. Normal color Doppler flow is demonstrated in both ovaries. 1.5x 1.2 x 1.7 cm hemorrhagic cyst in the left ovary. There are no ovarianmasses. There is no significant free pelvic fluid. IMPRESSION: 1. 1.7 cm hemorrhagic cyst in the left ovary. Otherwise unremarkableultrasound evaluation of the pelvis. Dictated by Tin Malloy MD @ 04/12/2024 1:19:24 PM (Electronically Signed) us Feli QUINONES US Final Resul t * (ABNORMAL) TURBINE ATTENDANT THIN PREP PAP AND HPV DNA REFLEX HPV 16/18 - AGE 25 AND OVER ([employer]) [81036] (03/13/2024 5:09 PM CDT) CLINICAL INFORMATION [facility] Comment: Hx of LSIL or higher Pap/Bx High risk HPV Hx/Rx LMP [facility] [place] Comment:03/04/24 APPROXIMATE PREV. PAP [facility] [place] Comment:08/2020 LSIL HPV+ PREV. BX [facility] Comment:COLP-BX SOURCE TURBINE ATTENDANT [facility] Comment:Cervix STATEMENT OF ADEQUACY [facility] Comment: Satisfactory for evaluation. Endocervical/transformation zone component present. GENERAL CATEGORIZATION (A) [facility] Comment:Cytology Results: Ep ithelial Cell Abnormality INTERPRETATION/RESUL T (A) [facility] Comment:Low Grade Squamous I ntraepithelial Lesion (LSIL) COMMENT [facility] Comment: This Pap test has been evaluated with computer assisted technology. LOWER IN SUPERVISOR [facility] Comment: JXL, CT(ASCP) CT Screening Location: [address] [address] PATHOLOGIST [facility] Comment: Erika Garvin MD Board Certified in Anatomic Pathology and Clinical Pathology (electronic signature) THINPREP TIS PAP ALWAYS MESSAGE [facility] Comment: EXPLANATORY NOTE: The Pap is a screening test for cervical cancer. It is not a diagnostic test and is subject to false negative and false positive results. It is most reliable when a satisfactory sample, regularly obtained, is submitted with relevant clinical findings and history, and when the Pap result is evaluated along with historic and current clinical information. HPV HIGH RISK Detected (A) NOT DETECTED [facility] Comment: Detected One or more High Risk HPV types (16,18,31,33, 35,39,45,51,52,56,58,59,66,68) was detected. Methodology: Real Time PCR Other (Cervical) 03/13/2024 5:09 PM CDT 03/14/2024 5:56 AM CDT us Elly Marks MD PATHOLOGY/CYTOLOGY Final Re sult [facility] [address] [place] [address], [facility] [address] [place] [address] * ANTI HCV (12/22/2021 8:46 AM CDT) Pathologist [facility] HEPATITIS C ANTIBODY Non-React [place] Non-React [place] 12/22/2021 5:56 PM CDT [facility] Comment:Antibodies to HCV no t detected; does not exclude the possibility of exposure to HCV. Blood BLOOD SPECIMEN / Unknown Venipuncture / Unknown 12/22/2021 8:46 AM CDT 12/22/2021 8:50 AM CDT Fanvibe Herbert DO SEND OUTS Final Result [facility] [address] [place] [address], * ANTI HIV 1/2 (12/22/2021 8:46 AM CDT) HIV-1/HIV-2 ANTIBODY Non-Reacti ve Non-Reacti ve 12/22/2021 5:56 PM CDT [facility] Comment:HIV-1 p24 and HIV-1/ HIV-2 Ab not detected. Blood BLOOD SPECIMEN / Unknown Venipuncture / Unknown 12/22/2021 8:46 AM CDT 12/22/2021 8:50 AM CDT Cassidy Godinez DO SEND OUTS Final Result Performing Organization Address City/[facility]/ZIP Co de Phone Number [facility] [address] [place] [address], from Last 3 Months or Most Recently Relevant to Health Maintenance Insurance [facility] [address] [place] [id number] [employer] [address] [place] [id number] [place] [id number] Advance Directives * Full Code (Latest Code Status on File) Date Activated Date Inactivated Comments 01/26/2020 1:47 AM 01/27/2020 8:59 PM Question Answer Comments Code Status Discussion: Not Discussed * Full Code Date Activated Date Inactivated Comments 01/19/2012 8:52 AM 01/19/2012 8:55 AM * Full Code Date Activated Date Inactivated Comments 01/12/2012 2:31 PM 01/12/2012 8:20 PM * Full Code Date Activated Date Inactivated Comments 04/07/2011 9:44 AM 04/07/2011 6:42 PM * Full Code Date Activated Date Inactivated Comments 12/17/2009 10:04 AM 12/17/2009 7:54 PM Care Teams Customer Experience Manager Relationship Specialty Start Date End Date Elly Marks MD [address] [facility] [place] [address] PCP - General Family Practice 03/13/24 Jillian [place] [address] Referring Provider Family Practice 01/23/22
--- OUTSIDE RECORDS SUMMARY | 2024-06-14 05:14 | XMS_ITS | Clinical Summary ---
Author Organization [facility] Address [address] [place] [address] Care Team Providers Care Hha Name Role Phone Zarina Tapia MD Primary Care Provider [phone] Source Comments You are receiving this document as you are listed as the primary care provider,follow-up provider, or the patient has been referred to you for consultation.This is in compliance with the Medicare and[facility] E[facility] Incentive Program,which states Providers who transition their patient to another setting of careor provider of care or refers their patient to another provider of care shouldprovide summary care record for each transition of care or referral. [facility] Allergies No known active allergies Medications Medication Sig Dispensed Refills Start Date End Date Status ORTHO TRI-CYCLEN (28) TABS 1 TABLET DAILY 28 6 08/29/2004 Active ALBUTEROL IN None Entered 0 Active ZITHROMAX 1 GM OR PACK None Entered 0 Active OXYCODONE-ACETAMINOPH EN 5-325 MG OR TABS None Entered 0 Act [place] CEPHALEXIN OR None Entered 0 Active OXYCODONE HCL OR None Entered 0 Active diclofenac (VOLTAREN) 75 MG enteric coated tablet Take 1 Tablet (75 mg) by mouth two times daily as needed. 30 Tablet 1 10/18/2021 Active Immunizations Name Administration Dates Next Due DTP 08/20/1993, 1,1989,1989 ,1989 HepB Ped/Adol (0-18 yrs) 01/08/1996,07/31/1995,1 07/09/1990 Hib, Unspecified Formulation 05/08/1991 MMR 01/08/1996,10/05/1990 OPV, Trivalent (Orimune or tOPV) 05/08/1991,12/12,1989,1989 Td 01/23/2002 Family History Medical History Relation Name Comments Diabetes Mother Hypertension Mother Relation Name Status Comments Mother Social History Tobacco Use Types Packs/Day Years Used Date Smoking Tobacco: Never Alcohol Use Standard Drinks/Week Comments No 0 (1 standard drink = 0.6 oz pur e alcohol) Sex and Gender Information Value Date Recorded Sex Assigned at Not on file Gender Identity Not on file Sexual Orientation Not on file Last Filed Vital Signs Vital Sign Reading Time Taken Comments Blood Pressure 134/84 04/30/2007 3:34 AM ROUGE PRESSER Pulse 121 04/30/2007 3:34 AM ROUGE PRESSER Temperature 36.7 C (98 F) 10/18/2021 3:18 PM CDT Respiratory Rate 20 04/30/2007 3:34 AM ROUGE PRESSER Oxygen Saturation 98% 04/30/2007 3:34 AM ROUGE PRESSER Inhaled Oxygen Concentration - - Weight 101.6 kg (224 lb) 10/18/2021 3:18 PM CDT Height 160 cm (5' 3) 10/18/2021 3:18 PM CDT Body Mass Index 39.68 10/18/2021 3:18 PM CDT Plan of Treatment Health Maintenance Due Date Last Done Comments Cervical Cancer Screening Due 1989 Hep C Screening (Preventive Services) 1989 HIV Screening (Preventive Services) 2005 Adult Preventive Visit 2007 01/23/2002, 1998 COVID-19 Vaccine ( season) 2024 07/16/2020, 06/18/2020 Influenza (#1) 2024 01/24/2021, 03/15, 06/04/2012 DTaP/Tdap/Td (8 - Tdap) 10/29/2029 10/30/19, 11/25/2018, 01/23/2002, Additional history exists Zoster/Shingles (1 of 2) 2039 Hib Completed 05/08/1991 IPV (Polio) Completed 05/08/1991, 12/12, 1989, Additional history exists HepB Completed 01/08/1996, 07/12, 05/08/1991 HPV Vaccine Aged Out No longer eligi ble based on patient's age to complete this topic HepA Aged Out No longer eligi ble based on patient's age to complete this topic MCV4 Aged Out No longer eligi ble based on patient's age to complete this topic Pneumococcal Aged Out No longer eligi ble based on patient's age to complete this topic Care Teams Hha Relationship Specialty Start Date End Date Zarina Tapia MD [address] [place] [id number] PCP - General 08/29/04
--- OUTSIDE RECORDS SUMMARY | 2024-06-14 05:14 | XMS_ITS | Encounter Summary ---
Author Organization [facility] Address [address] [place] [address] Care Team Providers Care Hazardous Material Specialist Name Role Phone Zarina Tapia MD Primary Care Provider [phone] Encounter Details Date Type Department Care Team (Late st Contact Info) Description 02/13/2003 [facility] [address] [place] [id number] Gus Olson MD [facility] [address] [place] [address] ADJUSTMENT DISORDER NOS Social History Tobacco Use Types Packs/Day Years [...] as of this encounter Visit Diagnoses Diagnosis Unspecified adjustment reaction (HRC) Unspecified adjustment reaction documented in this encounter Additional Health Concerns Infection Onset Date Last Indicated Resolved Time R/O COVID19 05/30/2021 05/30/2021 05/30/2021 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
[2024-06-14 05:17] VITALS: BP 110/75; PULSE 112; RESP 16; TEMP 35.9; O2SAT 97; BMI 41.6
[2024-06-14] MEDS: FAMOTIDINE 20 MG TABLET PO (05:52)
[2024-06-14] MEDS: ONDANSETRON ODT 4 MG TAB PO (05:52)
--- NOTE | 2024-06-14 06:02 | ED_ITS ---
HPI - General Adult General Chief complaint: Abdominal Pain Stated complaint: bad stomach pain, nausea/diarrhea Time Seen by Provider: 06/14/24 05:13 Source: patient Mode of arrival: ambulatory Limitations: no limitations History of Present Illness HPI narrative: 34-year-old female presents the emergency department with epigastric area abdominal pain for the past few hours. Patient has been taking would go be for about the past 3 months. Reports that she advanced from the 0.5 mg to the 1 mg dose last week and had abdominal discomfort and nausea with loose stools for a couple of days. Symptoms gradually improved through the week and she actually thought she must have gotten a GI virus as there are quite a bit of those going around. When she took her next does a couple of days ago, she started having si milar symptoms return but they are actually worsening tonight. She has not had any richard vomiting but does have nausea and pain in the epigastric/right upper quadrant area. She says that it feels similar to when she had gallstones previously but she has had her gallbladder removed a few years ago, uncomplicated. She has lost about 22 lb in the past 3 months and is finding the medication helpful. No bloody stools, no history pancreatitis. No excessive alcohol usage, has not tried any medications prior to coming to the ED. no dysuria or gynecological changes. Denies chance of . Nonsmoker, denies long-term medications or allergies. ROS is notable for the GI symptoms only, otherwise denies times 12 systems. Related Data Home Medications ?Medication ?Instructions ?Recorded ?Confirmed semaglutide (weight loss) 0.25 0.25 mg subcut 04/08/24 04/08/24 mg/0.5 mL subcutaneous pen injector (Wegovy) Previous Rx's ?Medication ?Instructions ?Recorded fluticasone propionate 50 1 spray intranasal QDAY #16 grams 04/08/24 mcg/actuation nasal spray,suspension Allergies Allergy/AdvReac Type Severity Reaction Status Date / Time No Known Drug Allergies Allergy Verified 04/08/24 12:47 [facility] Medical History SUZANNA I (cervical intraepithelial neoplasia I) ?N87.0 - Mild cervical dysplasia (ICD-10) Vitamin D deficiency ?E55.9 - Vitamin D deficiency, unspecified (ICD-10) ASCUS (atypical squamous cells of undetermined significance) on gynecologic Papanicolaou smear complicating , antepartum Hidradenitis ?L73.2 - Hidradenitis suppurativa (ICD-10) Surgical History Hx laparoscopic cholecystectomy ?Z90.49 - Acquired absence of other specified parts of digestive tract (ICD- 10) Family History Other Diabetes High cholesterol Social History Smoking Status: Never smoker Do you use any of these nicotine containing products: None Non-prescribed substance use: denies use Exam Const: Vital Signs, click to edit/add: Vital Signs - 24 hr 06/14/24 05:17 06/14/24 06:42 Temperature 96.7 F L Pulse Rate [Left P ulse Oximeter] 112 H 84 Respiratory Rate 16 16 Blood Pressure [Ri ght Upper Arm] 110/75 Pulse Oximetry 97 97 Oxygen Delivery Me thod Room Air Room Air Documenting provider has reviewed patient's vital signs: yes Common normals: no apparent distress General appearance: cooperative and well kempt Other: Appears mildly uncomfortable but nontoxic friendly and cooperative. HENMT: Common normals: normocephalic, moist oral mucous membranes and o ropharynx normal Head and scalp: normocephalic Mouth: oral and palatal mucosa normal Throat: posterior oropharynx normal Eye: Common normals: conjunctivae normal General eye: normal appearance of both eyes Conjunctiva: conjunctiva(e) normal Neck & C-Spine: Common normals: full ROM and no lymphadenopathy General: normal visual inspection Resp: Common normals: normal respiratory effort, no use of accessory muscles and clear to auscultation bilaterally Effort & inspection: able to speak in complete sentences Auscultation: clear to auscultation bilaterally Cardio: Common normals: regular rate, regular rhythm, S1 normal heart sound, S2 normal heart sound and no murmurs Rate: regular rate Rhythm: regular rhythm Heart sounds: S1 normal and S2 normal GI: Common normals: Normal to inspection, nondistended, normoactive bowel sounds present, soft to palpation, no hepatosplenomegaly and no masses Palpation: soft and no hepatosplenomegaly Other: Mildly tender to epigastric region only. No rebound tenderness, guarding or mass Back & Pelvis: Common normals: thoracic and lumbar spine normal to inspection Extremity: Common normals: normal to inspection, normal capillary refill and no pedal edema Psych: Appearance: well kempt Attitude: engaged Activity/motor behavior: appropriate eye contact Attention/concentration: attention grossly intact Memory/cognition: memory grossly intact Insight: insight good Judgement: judgment good Skin: Common normals: no rashes or lesions noted General skin exam: no rashes or lesions noted Course Course ED Course: 34-year-old female with epigastric area abdominal pain. Symptoms most likely consistent with gastroenteritis, cannot exclude side effects from ago V. Less likely pancreatitis, colitis, gallstone, esophagitis, ulcer or other abnormality. Will give oral Zofran and oral famotidine. Will double check some basic labs to ensure there is no significant intra-abdominal pathology. Counseled patient that it is not unusual the patient's have significant side effects of this medication when bumping up to higher doses. She has been very successful on the low and medium doses. She should talk to her primary care provider or prescribing physician regarding potentially going back to the 0.5 mg dosage. We do see quite a few patients in the emergency department that seemed to have amplified symptoms and side effects when they get other minor GI illnesses. Await clinical response and findings. Consider abdominal imaging if either are suspicious. Reevaluation(s) Time of Reevaluation #1: 06:53 Reevaluation #1: Counseled patient on findings. Labs are very reassuring. She is feeling somewhat better after the Zofran and famotidine. Counseled on management plan. I do think that this is mostly side effects from her wig OV and the recent increased dose. She may have a mild viral illness compounding things as well. Unfortunately, there is no way to undo the medication dose and it will take abou t a week for things to calm down. She should consider skipping 1 week of dosing and then restarting at a lower dose. Prescriptions given for Zofran, counseled on iwac-vpy-vhiheha omeprazole or famotidine once daily for the next few days. Alarm symptoms reviewed that would warrant ED presentation or earlier follow-up. Contact her primary care physician to coordinate dosing and management plan for the medication long-term. She verbalizes understanding and agreement. Vital Signs Vital signs: Initial Vital Signs Temperature 96.7 F L 06/14/24 05:17 Temperature Source Temporal Artery Scan 06/14/24 05:17 Pulse Rate 112 H 06/14/24 05:17 Pulse Rhythm Regular 06/14/24 05:17 Respiratory Rate 16 06/14/24 05:17 Blood Pressure 110/75 06/14/24 05:17 Blood Pressure Mean 86 06/14/24 05:17 Blood Pressure Position Sitting 06/14/24 05:17 Pulse Oximetry 97 06/14/24 05:17 Oxygen Delivery Method Room Air 06/14/24 05:17 Vital Signs Temperature 96.7 F L 06/14/24 05:17 Pulse Rate 112 H 06/14/24 05:17 Respiratory Rate 16 06/14/24 05:17 Blood Pressure 110/75 06/14/24 05:17 Pulse Oximetry 97 06/14/24 05:17 Oxygen Delivery Method Room Air 06/14/24 05:17 Temperature 96.7 F L 06/14/24 05:17 Pulse Rate 84 06/14/24 06:42 Respiratory Rate 16 06/14/24 06:42 Blood Pressure 110/75 06/14/24 05:17 Pulse Oximetry 97 06/14/24 06:42 Oxygen Delivery Method Room Air 06/14/24 06:42 Medications Administered Medications: Discontinued Medications Generic Name Dose Route Start Last Admin Trade Name Freq PRN Reason Stop Dose Admin Famotidine 20 mg 06/14/24 05:44 06/14/24 05:52 Famotidine 20 Mg Tablet PO 06/14/24 05:45 20 mg ONCE ONE Administration Ondansetron HCl 4 mg 06/14/24 05:44 06/14/24 05:52 Ondansetron Odt 4 Mg Tab PO 06/14/24 05:45 4 mg ONCE ONE Administration Medical Decision Making Lab Data Lab results reviewed: Yes I reviewed the patient's lab results Lab results narrative: Labs reassuring. Labs: Lab Results 06/14/24 06/14/24 06/14/24 Range/Units 05:52 06:03 06:04 WBC 9.35 (4.50-11.00) K/uL RBC 5.42 H (4.00-5.20) m/uL Hgb 14.8 (12.0-16.0) gm/dL Hct 43.8 (33.0-51.0) % MCV 81 (80-100) fL MCH 27 (26-34) pg MCHC 34 (32-36) gm/dL RDW Coeff of Minnie 11.8 (11.5-15.5) % Plt Count 256 (140-440) K/uL Neut % (Auto) 67.8 (42.0-72.0) % Lymph % (Auto) 17.5 L (20-44) % [place] % (Auto) 8.7 (0.0-11.0) % Eos % (Auto) 4.9 (0.0-7.0) % Baso % (Auto) 0.2 (0.0-3.0) % Neut # (Auto) 6.34 (1.7-7.0) K/uL Lymph # (Auto) 1.60 (0.90-2.90) K/uL [place] # (Auto) 0.80 (0.00-0.90) K/UL Eos # (Auto) 0.46 (0.00-0.50) K/uL Baso # (Auto) 0.02 (0.00-0.30) K/uL Abs Immat Gran (auto) 0.08 (0.00-0.30) K/uL Imm/Tot Granulo (auto) 0.9 % Sodium 139 (135-149) mmol/L Potassium 3.6 (3.6-5.1) mmol/L Chloride 105 (96-114) mmol/L Carbon Dioxide 22 (20-32) mmol/L Anion Gap 12 (7-15) mEq/L BUN 17 (5-24) mg/dL Creatinine 0.6 (0.5-1.5) mg/dL Estimated Creat Clear 108.26 Estimated GFR 120 ml/min Glucose 108 (60-115) mg/dL Lactate 0.8 (0.5-1.9) mmol/L Calcium 9.1 (8.4-10.6) mg/dL Total Bilirubin 0.5 (0.1-1.5) mg/dL AST 24 (12-35) U/L ALT 35 (4-35) U/L Alkaline Phosphatase 48 (40-150) U/L C-Reactive Protein < 0.5 L (0.5-1.0) mg/dL Total Protein 8.2 (6.0-8.3) g/dL Albumin 4.5 (3.3-5.0) g/dL SARS-CoV-2 (PCR) Negative SARS-CoV-2 (Negative) Influenza Type A (PCR) Negative PCR FLU A (Negative) Influenza Type B (PCR) Negative PCR FLU B (Negative) RSV (PCR) Negative PCR RSV (Negative) Lab Acknowledgement Test Added Discharge Plan Discharge Clinical Impression: Medication side effect Patient Disposition: Home w/ Parent or Adult Condition: Improved Instructions: Abdominal Pain (ED) Additional Instructions: As we discussed, your labs are very reassuring. I do think that your abdominal pain and nausea is caused by the higher dose of Wegovy. This is a very common side effect. Just because you are having the side effects, it does not mean that you cannot take the medication. Unfortunately, there is nothing I can do to get the medication out of your system now but things should improve gradually over the next week. Sometimes people will take a week off of the medication and then resume at a lower dose. Base this on how you feel on your next planned dosage day. You can also get feedback from your prescribing physician to decide what is right for you. It is safe to use Tylenol 1000 mg every 6 hours for the discomfort. I would like for you to use an mdck-nsv-pzoknyr stomach acid medicine like omeprazole or famotidine once daily for the next few days until things calm down. I have given her prescription for Zofran which is an anti nausea medicine that may help as well. Eat small portions of soft bland foods and make sure that you are drinking plenty of water. If you have high fever, bloody stools, worsening of symptoms, please return to the emergency department. Activity Level: Activity as Tolerated Discharge Diet: Regular Prescriptions: No Action Wegovy 0.25 mg/0.5 mL pen injector 0.25 mg subcut fluticasone propionate 50 mcg/actuation spray,suspension 1 spray intranasal QDAY Qty: 16 0RF Rx Instructions: administer into each nostril Follow Up/Referrals: Jillian Fuentes DO [Staff Physician] - Stand Alone Forms: [facility] Info Instructions
[2024-06-14 06:04] LABS: Lactate* 0.8 mmol/L (0.5-1.9)
[2024-06-14 06:05] LABS: Basophils Absolute Auto 0.02 K/uL (0.00-0.30); Basophils Percent Auto 0.2 % (0.0-3.0); Eosinophils Absolute Auto 0.46 K/uL (0.00-0.50); Eosinophils Percent Auto 4.9 % (0.0-7.0); Hematocrit* 43.8 % (33.0-51.0); Hemoglobin* 14.8 gm/dL (12.0-16.0); Immature Granulocytes Abs Auto 0.08 K/uL (0.00-0.30); Immature Granulocytes Pct Auto 0.9 %; Lymphocytes Percent Auto 17.5 % (20-44); Mean Corpuscular HGB Conc 34 gm/dL (32-36); Mean Corpuscular Hemoglobin 27 pg (26-34); Mean Corpuscular Volume 81 fL (80-100); Monocytes Percent Auto 8.7 % (0.0-11.0); Neutrophils Absolute Auto 6.34 K/uL (1.7-7.0); Neutrophils Percent Auto 67.8 % (42.0-72.0); Platelet Count* 256 K/uL (140-440); RDW Coefficient of Variation % 11.8 % (11.5-15.5); Red Blood Count* 5.42 m/uL (4.00-5.20); White Blood Count* 9.35 K/uL (4.50-11.00)
--- OUTSIDE RECORDS SUMMARY | 2024-06-14 06:06 | XMS_ITS | Encounter Summary ---
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
--- OUTSIDE RECORDS SUMMARY | 2024-06-14 06:06 | XMS_ITS | Encounter Summary ---
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
--- OUTSIDE RECORDS SUMMARY | 2024-06-14 06:06 | XMS_ITS | Clinical Summary ---
Author Organization [facility] Address [address] [place] [address] Care Team Providers Care Soils Engineer Name Role Phone Zarina Tapia MD Primary Care Provider [phone] Source Comments You are receiving this document [...] for each transition of care or referral. [facility] Allerg[facility] No known active allergies Medications Medication [...] Comments Blood Pressure 134/84 04/30/2007 3:34 AM CHIEF TECHNICIAN X RAY Pulse 121 04/30/2007 3:34 AM CHIEF TECHNICIAN X RAY Temperature 36.7 C (98 F) 10/18/2021 3:18 PM CDT Respiratory Rate 20 04/30/2007 3:34 AM CHIEF TECHNICIAN X RAY Oxygen Saturation 98% 04/30/2007 3:34 AM CHIEF TECHNICIAN X RAY Inhaled Oxygen Concentration - - Weight 101.6 [...] age to complete this topic Care Teams Soils Engineer Relationship Specialty Start Date End Date Zarina Tapia MD [address] [place] [id number] PCP - General 08/29/04
--- OUTSIDE RECORDS SUMMARY | 2024-06-14 06:06 | XMS_ITS | Clinical Summary ---
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
--- OUTSIDE RECORDS SUMMARY | 2024-06-14 06:06 | XMS_ITS | Referral Summary ---
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
--- OUTSIDE RECORDS SUMMARY | 2024-06-14 06:06 | XMS_ITS | Clinical Summary ---
Author Organization Office [employer] [facility] Address [place], [place] [address] Care Team Providers Care Marine Service Operator Name Role Phone MishelannaJillian Tamia DO Unavailable [phone] Elly Marks MD Primary Care Provider [phone] Allergies No known active allergies Medications semaglutide, [...] Overview (03/24/2024): 06/2019 ASCUS/HPV+ 08/2020 LSIL/HPV+ 08/2020 Suring: Biopsy SUZANNA 1, ECC Insufficient 08/2021 ASC-H /HPV+, HPV 16/18 negative 09/2021 Suring: Biopsy Benign, ECC Benign 08/2022 ASCUS/HPV+, HPV 16/18 negative 12/2022 S[place]: Biopsy Suggestive of SUZANNA 1 02/2024 LSIL/HPV+ [...] aneuploidy identified. The echocardiogram was read by [facility] as normal. Normal Deepest Vertical Pocket of amniotic fluid: 6.31 cm. Placental location: Anterior There is no evidence of placenta previa. The cervical length is 3.4 cm. RECOMMENDATIONS Return to primary provider for continued care. Growth ultrasounds at 28 and 34 weeks due to BMI >40 (scheduled at [facility]) Weekly BPP/NST starting at 32 weeks (not currently scheduled at [facility]) Deliver after 39 weeks Growth US [...] Past Surgical History: . Laterality Date (IA) DE LAP CHOLECYSTECTOMY 04/07/2011 CHOLECYSTECTOMY COLPOSCOPY 08/25/2020 SUZANNA [...] Department Care Team Description 06/11/2024 12:40 PM READING RECOVERY TEACHER Office Visit [facility] [address] [place] [address] Elly Marks MD Weight (Following up on Wegovy, 1 MG/) 06/10/2024 Travel 04/30/2024 12:40 PM READING RECOVERY TEACHER Office Visit [facility] [address] [place] [address] Elly Marks MD Medication Management (Wegovy, feels good) 04/30/2024 Travel 04/14/2024 Refill [facility] [address] [place] [address] Elly Marks MD Refill Request (Wegovy) 04/09/2024 1:45 PM READING RECOVERY TEACHER Ancillary Procedure [facility] [address] [facility] [address] [place] [id number] 04/09/2024 1:20 PM READING RECOVERY TEACHER Office Visit [facility] [address] [facility] [address] [place] [id number] Feli Perez MBBS Consult (HPV abn pap 03/13/2024) 04/09/2024 Travel 04/08/2024 Travel 04/08/2024 Refill [facility] [address] [facility] [place] [address] Elly Marks MD Refill Request (Wegovy) 03/20/2024 Telephone [facility] [address] [facility] [place] [address] Elly Marks MD Pap Plan 03/18/2024 Telephone [facility] [address] [place] [address] Elly Marks MD Prior Authorization (semaglutide (Wegovy) [...] on file Legal Sex Female 7:26 AM READING RECOVERY TEACHER Gender Identity Not on file Sexual Orientation Not on file Occupation Industry Job Start Date Job End Date [employer] Medicine Not on file Not [...] F Vag Livin g Magdaleno Lin Delivery Location:[place] 020 Term 39w 3d 0h 16m/0h 08m 4.09 kg (9 lb 0.3 oz) F Vag Livin g 8 9 FIGUER OA,BG EULALIO Delivery Location:[facility] (UTD 2000 MB L&D TRIAGE) 023 Term 38w 1d 3.71 kg (8 lb 3 oz) M Vag Last Filed Vital Signs Vital Sign Reading Time Taken Comments Blood Pressure 104/71 06/11/2024 12:43 PM READING RECOVERY TEACHER Pulse 76 06/11/2024 12:43 PM READING RECOVERY TEACHER Temperature 36.8 C (98.2 F) 01/24/2022 2:06 PM CDT Respiratory Rate 18 01/24/2022 2:06 PM CDT Oxygen Saturation 100% 06/11/2024 12: 43 PM READING RECOVERY TEACHER Inhaled Oxygen Concentration - - Weight 108.7 kg (239 lb 9.6 oz) 06/11/2024 12:43 PM READING RECOVERY TEACHER patient reported Height 160 cm (5' 2.99) [...] PELVIS COMPLETE TV Routine 04/09/2024 2:20 PM READING RECOVERY TEACHER Cervical high risk human papillomavirus (HPV) DNA test positive Unwanted fertility Menorrhagia with regular cycle SHAG [employer] THIN PREP PAP AND HPV DNA - [...] US PELVIS COMPLETE TV (04/09/2024 2:20 PM READING RECOVERY TEACHER) Anatomical Region Laterality Modality Pelvis, OVARIES, UTERUS Ultrasou nd 04/12/2024 1:19 PM READING RECOVERY TEACHER Impressions 04/12/2024 1:19 PM READING RECOVERY TEACHER 1. 1.7 cm hemorrhagic cyst in the left ovary. Otherwise unremarkable ultrasound evaluation of the pelvis. Dictated by Tin Malloy MD @ 04/12/2024 1:19:24 PM (Electronically Signed) Narrative 04/12/2024 1:19 PM READING RECOVERY TEACHER For Patients: As a result of the [...] QUINONES US Final Resul t * (ABNORMAL) SHAG [employer]UCK [employer] THIN PREP PAP AND HPV DNA REFLEX HPV 16/18 - AGE 25 AND OVER ([employer]) [15044] (03/13/2024 5:09 PM CDT) CLINICAL INFORMATION [facility] Comment: Hx of LSIL or higher Pap/Bx High risk HPV Hx/Rx LMP [facility] Comment:03/04/24 APPROXIMATE PREV. PAP [facility] Comment:08/2020 LSIL HPV+ PREV. BX [facility] Comment:COLP-BX SOURCE SHAG TRUCK DRIVER [facility] Comment:Cervix STATEMENT OF ADEQUACY [facility] Comment: Satisfactory for evaluation. Endocervical/transformation zone component present. GENERAL CATEGORIZATION (A) [facility] Comment:Cytology Results: Ep ithelial Cell Abnormality INTERPRETATION/RESUL T (A) [facility] Comment:Low Grade Squamous I ntraepithelial Lesion (LSIL) COMMENT [facility] Comment: This Pap test has been evaluated with computer assisted technology. [employer] [facility] Comment: JXL, CT(ASCP) CT Screening Location: [address] [facility] Comment: Erika Garvin MD Board Certified in Anatomic Pathology and Clinical Pathology (electronic signature) THINPREP TIS PAP ALWAYS MESSAGE [facility] Comment: EXPLANATORY NOTE: The Pap is a [...] HPV HIGH RISK Detected (A) NOT DETECTED [facility] Comment: Detected One or more High Risk HPV types (16,18,31,33, 35,39,45,51,52,56,58,59,66,68) was detected. Methodology: Real Time PCR Other (Cervical) 03/13/2024 5:09 PM CDT 03/14/2024 5:56 AM CDT us Elly Marks MD PATHOLOGY/CYTOLOGY Final Re sult [facility] [address] [place] [address], [facility] [address] [place] [address] * ANTI HCV (12/22/2021 8:46 AM CDT) Pathologist [facility] HEPATITIS C ANTIBODY Non-React [place] Non-React [place] 12/22/2021 5:56 PM CDT [facility] Comment:Antibodies to HCV no t detected; does not exclude the possibility of exposure to HCV. Blood BLOOD SPECIMEN / Unknown Venipuncture / Unknown 12/22/2021 8:46 AM CDT 12/22/2021 8:50 AM CDT [employer] Herbert DO SEND OUTS Final Result [facility] [address] [place] [address], * ANTI HIV 1/2 (12/22/2021 8:46 AM CDT) HIV-1/HIV-2 ANTIBODY Non-Reacti ve Non-Reacti ve 12/22/2021 5:56 PM CDT [facility] Comment:HIV-1 p24 and HIV-1/ HIV-2 Ab not detected. Blood BLOOD SPECIMEN / Unknown Venipuncture / Unknown 12/22/2021 8:46 AM CDT 12/22/2021 8:50 AM CDT Cassidy Godinez DO SEND OUTS Final Result Performing Organization Address City/[facility]/ZIP Co de Phone Number [facility] [address] [place] [address], from Last 3 Months or Most Recently Relevant to Health Maintenance Insurance [facility] [address] [place] [id number] [employer] [address] [place] [id number] [place] [id number] Advance Directives * Full Code (Latest Code [...] 10:04 AM 12/17/2009 7:54 PM Care Teams Marine Service Operator Relationship Specialty Start Date End Date Elly Marks MD [address] [facility] [place] [address] PCP - General Family Practice 03/13/24 Jillian Fuentes [place] [address] [place] [address] Referring Provider Family Practice 01/23/22
[2024-06-14 06:10] LABS: Slide Review Reflex No
[2024-06-14 06:23] LABS: Chloride* 105 mmol/L (96-114)
[2024-06-14 06:24] LABS: Albumin* 4.5 g/dL (3.3-5.0); Sodium* 139 mmol/L (135-149)
[2024-06-14 06:25] LABS: Potassium* 3.6 mmol/L (3.6-5.1)
[2024-06-14 06:27] LABS: Alanine Aminotransferase* 35 U/L (4-35); Alkaline Phosphatase* 48 U/L (40-150); Anion Gap 12 mEq/L (7-15); Aspartate Amino Transferase* 24 U/L (12-35); Bilirubin Total* 0.5 mg/dL (0.1-1.5); Blood Urea Nitrogen* 17 mg/dL (5-24); Carbon Dioxide* 22 mmol/L (20-32); Creatinine* 0.6 mg/dL (0.5-1.5); Est. Creatinine Clearance* 108.26; Estimated Glomerular Filt Rate 120 ml/min; Total Protein* 8.2 g/dL (6.0-8.3)
[2024-06-14 06:28] LABS: Calcium* 9.1 mg/dL (8.4-10.6); Glucose* 108 mg/dL (60-115)
[2024-06-14 06:37] LABS: C Reactive Protein* < 0.5 mg/dL (0.5-1.0)
[2024-06-14 06:42] VITALS: PULSE 84; RESP 16; O2SAT 97
[2024-06-14 06:43] LABS: PCR FLU A Negative PCR FLU A (Negative); PCR FLU B Negative PCR FLU B (Negative); PCR RSV Negative PCR RSV (Negative); SARS PCR* Negative SARS-CoV-2 (Negative)
[2024-06-14 07:14] LABS: Lipase* 82 U/L (23-300)
== END 2024-06-14 07:06 | disposition home or self-care (01) ==
PROVIDERS: Emergency Provider Family Medicine; PCP Family Medicine
DX: R10.13 Epigastric pain (principal)
CPT/HCPCS: 36415; 80053; 83605; 83690; 85025; 86140; 87637; 99283; 99284; A9270

== ENCOUNTER 2024-12-31 18:05 | Emergency (ER) | payer BC, SELFPAY ==
[2024-12-31] VITALS (16 sets, daily range): BP systolic 108–131; BP diastolic 60–86; PULSE 80–92; RESP 11–18; TEMP 36.6; O2SAT 97–100; BMI 41.6
--- OUTSIDE RECORDS SUMMARY | 2024-12-31 18:07 | XMS_ITS | Clinical Summary ---
Author Organization [facility] Address [address] [place] [address] Care Team Providers Care Mortgage Coordinator Name Role Phone Zarina Tapia MD Primary Care Provider [phone] Source Comments You are receiving this document as you are listed as the primary care provider,follow-up provider, or the patient has been referred to you for consultation.This is in compliance with the Medicare and[facility] EHR Incentive Program,which states Providers who transition their patient to another setting of careor provider of care or refers their patient to another provider of care shouldprovide summary care record for each transition of care or referral. [facility] Allergies No known active allergies Medications ORTHO TRI-CYCLEN (28) TABS 1 TABLET DAILY 28 6 08/29/2004 Active ALBUTEROL IN None Entered 0 Acti ve ZITHROMAX 1 GM OR PACK None Entered 0 Active OXYCODONE-ACETA MINOPHEN 5-325 MG OR TABS None Entered 0 Active CEPHALEXIN OR None Entered 0 Act [place] OXYCODONE HCL OR None Entered 0 Active diclofenac (VOLTAREN) 75 MG enteric coated tablet Take 1 Tablet (75 mg) by mouth two times daily as needed. 30 Tablet 1 10/18/2021 Active Immunizations Immunization Administration Dates Next Due DTP 08/20/1993, 1,1989,1989 [...] drink = 0.6 oz pur e alcohol) Comments No Sex and Gender Information Value Date Recorded Sex Assigned at Not on file Legal Sex Female 3:28 AM CDT Gender Identity Not on file Sexual Orientation Not on file Last Filed Vital Signs Vital Sign Reading Time Taken Comments Blood Pressure 134/84 04/30/2007 3:34 AM STRATEGY MANAGER Pulse 121 04/30/2007 3:34 AM STRATEGY MANAGER Temperature 36.7 C (98 F) 10/18/2021 3:18 PM CDT Respiratory Rate 20 04/30/2007 3:34 AM STRATEGY MANAGER Oxygen Saturation 98% 04/30/2007 3:34 AM STRATEGY MANAGER Inhaled Oxygen Concentration - - Weight 101.6 kg (224 lb) 10/18/2021 3:18 PM CDT Height 160 cm (5' 3) 10/18/2021 3:18 PM CDT Body Mass Index 39.68 10/18/2021 3:18 PM CDT Plan of Treatment Health Maintenance Due Date Last Done Comments Cervical Cancer Screening Due 1989 Hep C Screening (Preventive Services) 1989 HIV Screening (Preventive Services) 2005 Adult Preventive Visit 2007 01/23/2002, 1998 HPV Vaccine (1 - 3-dose SCDM series) 02/12/2016 COVID-19 Vaccine ( season) 2024 07/16/2020, 06/18/2020 Influenza Vaccine (#1) 2025 , 04/09/2019, 06/04/2012 DTaP/Tdap/Td Vaccine (8 - Tdap) 10/29/2029 10/30/2019, 11/25/2018, 01/23/2002, Additional history exists Zoster/Shingles Vaccine (1 of 2) 2039 Hib Vaccine Completed 05/08/1991 IPV (Polio) Vaccine Completed 05/08/1991, 1989, 1989, Additional history exists HepB Vaccine Completed 01/08/1996, 07/12, 05/08/1991 HepA Vaccine Aged Out No longer eligi ble based on patient's age to complete this topic MCV4 Vaccine Aged Out No longer eligi ble based on patient's age to complete this topic Meningococcal B Vaccine Aged Out No l onger eligible based on patient's age to complete this topic Pneumococcal Vaccine Aged Out No long er eligible based on patient's age to complete this topic Insurance [facility] [address] [place] [address] [facility] [id number] Care Teams Mortgage Coordinator Relationship Specialty Start Date End Date Zarina Tapia MD [address] [place] [id number] PCP - General 08/29/04
--- OUTSIDE RECORDS SUMMARY | 2024-12-31 18:07 | XMS_ITS | Clinical Summary ---
Author Organization [employer] [facility] Address [address] [place] [address] Care Team Providers Care Marine Design Engineer Name Role Phone Jillian Fuentes DO Unavailable [phone] Elly Marks MD Primary Care Provider [phone] Allergies No known active allergies Medications semaglutide (weight loss) (Wegovy) 2.4 mg/0.75 mL subcutaneous penIndications:C lass 3 severe obesity with body mass index (BMI) of 40.0 to 44.9 in adult, unspecified obesity type, unspecified whether serious comorbidity present (HC) Inject 2.4 mg subcutaneous once weekly. 3 mL 1 11/30/19 25 Active buPROPion (WELLBUTRIN XL) 150 mg Extended-Release tabletIndication s:Depressed mood Take 1 Tablet (150 mg) by mouth once daily in the morning. 93 Tablet 3 12/19/19 25 Active polyethylene glycoL (MIRALAX) 17 gram/scoop powderIndication s:Chronic constipation Mix 1 scoop (17 g) in liquid then take by mouth once daily. 510 g 3 12/19/19 25 Active psyllium (METAMUCIL) 0.4 gram capsuleIndicatio ns:Chronic constipation Take 1 Capsule by mouth once daily. 93 Capsule 3 12/19/19 25 Active semaglutide (weight loss) (Wegovy) 1 mg/0.5 mL subcutaneous penIndications:C lass 3 severe obesity with body mass index (BMI) of 40.0 to 44.9 in adult, unspecified obesity type, unspecified whether serious comorbidity present (HC) Inject 1 mg subcutaneous once weekly for 28 days. 2 mL 12/05/19 25 025 Discontin ued(*Med complete/ Regimen complete/ Level of care change) semaglutide (weight loss) (Wegovy) 1.7 mg/0.75 mL subcutaneous penIndications:C lass 3 severe obesity with body mass index (BMI) of 40.0 to 44.9 in adult, unspecified obesity type, unspecified whether serious comorbidity present (HC) Inject 1.7 mg subcutaneous once weekly. 3 mL 10/28/19 25 025 Discontin ued(*Med complete/ Regimen complete/ Level of care change) Active Problems Problem Noted Date Diagnosed Date Pap smear of cervix with ASCUS, cannot exclude H GSIL 07/09/2019 Overview (03/24/2024): 06/2019 ASCUS/HPV+ 08/2020 LSIL/HPV+ 08/2020 [place]: Biopsy SUZANNA 1, ECC Insufficient 08/2021 ASC-H /HPV+, HPV 16/18 negative 09/2021 [place]: Biopsy Benign, ECC Benign 08/2022 ASCUS/HPV+, HPV 16/18 negative 12/2022 [place]: Biopsy Suggestive of SUZANNA 1 02/2024 LSIL/HPV+ [...] aneuploidy identified. The echocardiogram was read by [facility] as normal. Normal Deepest Vertical Pocket of amniotic fluid: 6.31 cm. Placental location: Anterior There is no evidence of placenta previa. The cervical length is 3.4 cm. RECOMMENDATIONS Return to primary provider for continued care. Growth ultrasounds at 28 and 34 weeks due to BMI >40 (scheduled at [facility]) Weekly BPP/NST starting at 32 weeks (not currently scheduled at [facility]) Deliver after 39 weeks Growth US 05/01/22 [...] Encounters Date Type Department Care Team Description 12/18/2024 10:25 AM CDT Office Visit [facility] [address] [place] [address] Elly Marks MD Concerns (Patient states she has been having symptoms like decrease in libido, vaginal dryness, thinning hair, low energy, Skin tags popping up around breasts and face. She feels her hormones might be off. She has noticed it for about 3-4 months.); Medication Management (Patient states she has been constipated for 4 days with soreness in her abdomen on both sides. Patient has not tried stool softer yet.) 12/17/2024 Travel 11/12/2024 1:05 PM CDT Telemedicine [facility] [address] [place] [address] Elly Marks MD Medication Management (wegovy 1.7mg) 11/11/2024 Travel 10/27/2024 Refill [facility] [address] [place] [address] Elly Marks MD Refill Request (Wegovy) 10/01/2024 Refill [facility] [address] [place] [address] Elly Marks MD Refill Request (Wegovy) from Last 3 Months Immunizations Immunization Administration Dates Next Due COVID-19 vaccine (Moderna 100mcg/0.5mL) ARINA NICOLE 07/16/2020,06/18/2020 DTP 08/20/1993, 1,1989,1989,1989 Dtap-5 Pertussis Antigens 08/20/1993,,1989,1989,1989 HIB PRP-T (ActHIB,Hiberix) 05/08/1991 Hepatitis B (Peds) 01/08/1996,07/31/1995, 991 Hib Conjugate, Unspecified 05/08/1991 Inactivated Polio Vaccine 05/08/1991,,1989,1988 Influenza, IIV3 (Age >=3 years) 04/09/2019,06/04 Influenza, [...] on file Legal 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 Gender Identity Not on file Sexual Orientation Not on file Occupation Industry Job Start Date Job End Date [employer] Medicine Not on file Not on file Not o n file Obstetrics History Para Term AB IAB SAB Ectopic Multiple Livin g Live Births 3 3 3 2 2 Date Outcome GA Total Labor Labor/2nd/3rd Weight Sex Type Anes PTL Madi A1 A5 Name Clin 008 Term 41w 0d 4 kg (8 lb 13 oz) F Vag Livin g Magdaleno Lin Delivery Location:[place] 020 Term 39w 3d 0h 16m/0h 08m 4.09 kg (9 lb 0.3 oz) F Vag Livin g 8 9 FIGUER OA,BG EULALIO Delivery Location:[facility] (UTD 2000 MB L&D TRIAGE) 023 Term 38w 1d 3.71 kg (8 lb 3 oz) M Vag Last Filed Vital Signs Vital Sign Reading Time Taken Comments Blood Pressure 114/80 12/18/2024 10:14 AM CDT Pulse 84 12/18/2024 10:14 AM CDT Temperature 36.7 C (98.1 F) 08/06/2024 4:54 PM CDT Respiratory Rate 18 08/06/2024 4:54 PM CDT Oxygen Saturation 98% 12/18/2024 10: 14 AM CDT Inhaled Oxygen Concentration - - Weight 106.1 kg (233 lb 14.4 oz) 2024 10:14 AM CDT Height 160.9 cm (5' 3.35) 12/18/2024 1 0:14 AM CDT Body Mass Index 40.98 12/18/2024 10:14 AM CDT Plan of Treatment Upcoming Encounters Date Type Department Care Team (Late st Contact Info) Description 03/19/2025 10:25 AM HOT CAR CHARGER Office Visit [facility] [address] [place] [address] Elly Marks MD [address] [place] [address] Scheduled Procedures Name Priority Associated Diagnoses Date/Ti me SURGICAL PROCEDURE (TYPE PROCEDURE DESCRIPTION BELOW) Tier 2: within 30 days Cervical high risk human papillomavirus (HPV) DNA test positive Menorrhagia with regular cycle Health Maintenance Due Date Last Done Comments COVID-19 vaccine series ( season) 2024 07/16/2020, 06/18/2020 Influenza Vaccine (#1) 2025 2, 01/24/2021, 04/09/2019, Additional history exists Pap test for age 21-65 03/13/2025 4, 12/21/2022 (Verified in Care Everywhere or Patient Record), 08/22/2022, Additional history exists Depression screening for age 12+ 04/09/2025 04/09/2024 BMI (ht and wt on same day) for age 18+ 12/18/2025 12/18/2024, 07/08/2024, 03/13/2024, Additional history exists Tetanus booster 05/03/2032 05/03/2022, 10/12, 11/25/2018, Additional history exists Hepatitis B series for 19+ Completed 01/07, 07/31/1995, 05/08/1991 HIV for age 15-65 Completed 12/22/2021, 07/09/2019 Hepatitis C screening for age 18-79 Completed 12/22/2021 Pneumococcal series for age 6-49 Aged Out No longer eligible based on patient's age to complete this topic Procedures Procedure Name Priority Date/Time Associated Diagnosis Comments COMP METABOLIC PANEL Routine 12/18/2024 10:56 AM CDT Low libido CBC WITH AUTO DIFFERENTIAL Routine 12/18/2024 10:56 AM CDT Menorrhagia with regular cycle TSH WITH REFLEX Routine 12/18/2024 10:56 AM CDT Menorrhagia with regular cycle ESTRADIOL Routine 12/18/2024 10:56 AM CDT Low libido TESTOSTERONE,TOTAL Routine 12/18/2024 10 :56 AM CDT Low libido WAREHOUSE GUARD THIN PREP PAP AND HPV DNA - AGE 25 AND OVER ([facility]) Routine 03/13/2024 5:09 PM CDT Screening for cervical cancer ANTI HIV 1/2 Routine 12/22/2021 8:46 AM CDT 4 weeks gestation of (HC) ANTI HCV Routine 12/22/2021 8:46 AM CDT 4 weeks gestation of (HC) from Last 3 Months or Most Recently Relevant to Health Maintenance Results * TSH WITH REFLEX (12/18/2024 10:56 AM CDT) TSH W/REFLEX TO FT4 1.57 mIU/L [facility] Comment: Reference Range > or = 20 Years 0.40-4.50 Ranges First trimester 0.26-2.66 Second trimester 0.55-2.73 Third trimester 0.43-2.91 Blood BLOOD SPECIMEN / Unknown 12/18/2024 10:56 AM CDT 12/18/2024 10:56 AM CDT us Elly Marks MD CHEMISTRY Final Resul t [facility] [address] [place] [address], [place] [phone] [facility] [address] [place] [address] * (ABNORMAL) CBC AND DIFFERENTIAL (12/18/2024 10:56 AM CDT) [facility] WHITE BLOOD CELL COUNT 8.0 3.8 - 10.8 Thousand/u L [facility] RED BLOOD CELL COUNT 5.32(H) 3.80 - 5.10 Million/uL [facility] HEMOGLOBIN 14.8 11.7 - 15.5 g/dL [facility] HEMATOCRIT 44.1 35.0 - 45.0 % [facility] MCV 82.9 80.0 - 100.0 fL [facility] MCH 27.8 27.0 - 33.0 pg [facility] MCHC 33.6 32.0 - 36.0 g/dL [facility] Comment: For adults, a slight decrease in the calculated MCHC value (in the range of 30 to 32 g/dL) is most likely not clinically significant; however, it should be interpreted with caution in correlation with other red cell parameters and the patient's clinical condition. RDW 12.9 11.0 - 15.0 % [facility] PLATELET COUNT 308 140 - 400 Thousand/u L [facility] MPV 10.7 7.5 - 12.5 fL [facility] ABSOLUTE NEUTROPHILS 5,088 1,500 - 7,800 cells/uL [facility] ABSOLUTE LYMPHOCYTES 1,968 850 - 3,900 cells/uL [facility] ABSOLUTE MONOCYTES 672 200 - 950 cells/uL [facility] ABSOLUTE EOSINOPHILS 216 15 - 500 cells/uL [facility] ABSOLUTE BASOPHILS 56 0 - 200 cells/uL [facility] NEUTROPHILS 63.6 % [facility] LYMPHOCYTES 24.6 % [facility] MONOCYTES 8.4 % [facility] EOSINOPHILS 2.7 % [facility] BASOPHILS 0.7 % [facility] Blood BLOOD SPECIMEN / Unknown 12/18/2024 10:56 AM CDT 12/18/2024 10:56 AM CDT Elly Marks MD HEMATOLOGY Final Resul t [facility] [address] [place] [address], [facility] [address] * (ABNORMAL) TESTOSTERONE,TOTAL (12/18/2024 10:56 AM CDT) [facility] TESTOSTERONE, TOTAL, MS 46(H) 2 - 45 ng/dL [facility] Comment: For additional information, please refer to https://education.[employer]tica/faq/TotalTestosteroneLCMSMS (This link is being provided for informational/educational purposes only.) (Note) This test was developed and its analytical performance characteristics have been determined by [facility]. It has not been cleared or approved by the FDA. This assay has been validated pursuant to the CLIA regulations and is used for clinical purposes. [facility] [address] [facility] [place] [address],[address] [facility] [id number] Valeriy Chino MD, PhD Blood BLOOD SPECIMEN / Unknown 12/18/2024 10:56 AM CDT 12/18/2024 10:56 AM CDT Elly Marks MD CHEMISTRY Final Resul t [facility] [address] [place] [id number], [facility] [address] [place] [address], [address] [place] [address] * ESTRADIOL (12/18/2024 10:56 AM CDT) ESTRADIOL 109 pg/mL [facility] Comment: Reference Range Follicular Phase: 19-144 Mid-Cycle: 64-357 Luteal Phase: 56-214 Postmenopausal: < or = 31 Reference range established on post-pubertal patient population. No pre-pubertal reference range established using this assay. For any patients for whom low Estradiol levels are anticipated (e.g. males, pre-pubertal children and hypogonadal/post-menopausal females), the [facility] Estradiol, Ultrasensitive, LCMSMS assay is recommended (order code [id number]). Please note: patients being treated with the drug fulvestrant (Faslodex(R)) have demonstrated significant interference in immunoassay methods for estradiol measurement. The cross reactivity could lead to falsely elevated estradiol test results leading to an inappropriate clinical assessment of estrogen status. [facility] order code [id number], Ultrasensitive LC/MS/MS demonstrates negligible cross reactivity with fulvestrant. Blood BLOOD SPECIMEN / Unknown 12/18/2024 10:56 AM CDT 12/18/2024 10:56 AM CDT us Elly Marks MD SEND OUTS Final Resul t [facility] [address] [place] [address], [facility] [address] [place] [address] * COMP METABOLIC PANEL (12/18/2024 10:56 AM CDT) Pathologist [facility] GLUCOSE 79 65 - 99 mg/dL [employer] Comment: Fasting reference interval UREA NITROGEN (BUN) 10 7 - 25 mg/dL [facility] CREATININE 0.62 0.50 - 0.97 mg/dL [employer] EGFR 119 > OR = 60 mL/min/1. 73m2 [facility] BUN/CREATININE RATIO SEE NOTE: 6 - 22 (calc) [facility] Comment: Not Reported: BUN and Creatinine are within reference range. SODIUM 135 135 - 146 mmol/L [facility] POTASSIUM 4.5 3.5 - 5.3 mmol/L [facility] CHLORIDE 101 98 - 110 mmol/L [facility] CARBON DIOXIDE 27 20 - 32 mmol/L [facility] CALCIUM 9.7 8.6 - 10.2 mg/dL [facility] PROTEIN, TOTAL 8.0 6.1 - 8.1 g/dL [facility] ALBUMIN 4.4 3.6 - 5.1 g/dL [facility] GLOBULIN 3.6 1.9 - 3.7 g/dL (calc) [facility] ALBUMIN/GLOBULIN RATIO 1.2 1.0 - 2.5 (calc) [facility] BILIRUBIN, TOTAL 0.6 0.2 - 1.2 mg/dL [facility] ALKALINE PHOSPHATASE 57 31 - 125 U/L [facility] AST 22 10 - 30 U/L [facility] ALT 28 6 - 29 U/L [facility] Blood BLOOD SPECIMEN / Unknown 12/18/2024 10:56 AM CDT 12/18/2024 10:56 AM CDT us Elly Marks MD CHEMISTRY Final Resul t [facility] [address] [place] [address], [facility] [address] [place] [address] * (ABNORMAL) WAREHOUSE GUARD THIN PREP PAP AND HPV DNA REFLEX HPV 16/18 - AGE 25 AND OVER ([facility]) [[id number]] (03/13/2024 5:09 PM CDT) Pathologist [facility] CLINICAL INFORMATION [facility] Comment: Hx of LSIL or higher Pap/Bx High risk HPV Hx/Rx LMP [facility] Comment:03/04/24 APPROXIMATE PREV. PAP [facility] Comment:08/2020 LSIL HPV+ PREV. BX [facility] Comment:COLP-BX SOURCE WAREHOUSE GUARD [facility] Comment:Cervix STATEMENT OF ADEQUACY [facility] Comment: Satisfactory for evaluation. Endocervical/transformation zone component present. GENERAL CATEGORIZATION (A) [facility] Comment:Cytology Results: Ep ithelial Cell Abnormality INTERPRETATION/RESUL T (A) [facility] Comment:Low Grade Squamous I ntraepithelial Lesion (LSIL) COMMENT [facility] Comment: This Pap test has been evaluated with computer assisted technology. CUTTING MACHINE FIXER [facility] Comment: JXL, CT(ASCP) CT Screening Location: [address] [address] PATHOLOGIST [facility] Comment: Erika Garvin MD Board Certified in Anatomic Pathology and Clinical Pathology (electronic signature) THINPREP TIS PAP ALWAYS MESSAGE [facility] Comment: EXPLANATORY NOTE: The Pap is [...] HPV HIGH RISK Detected (A) NOT DETECTED [facility] Comment: Detected One or more High Risk HPV types (16,18,31,33, 35,39,45,51,52,56,58,59,66,68) was detected. Methodology: Real Time PCR Other (Cervical) 03/13/2024 5:09 PM CDT 03/14/2024 5:56 AM CDT Elly Marks MD PATHOLOGY/CYTOLOGY Final Re sult [facility] [address] [place] [address], [address] [address] * ANTI HCV (12/22/2021 8:46 AM CDT) HEPATITIS C ANTIBODY Non-React [place] Non-React [place] 12/22/2021 5:56 PM CDT [facility] Comment:Antibodies to HCV no t detected; does not exclude the possibility of exposure to HCV. Blood BLOOD SPECIMEN / Unknown Venipuncture / Unknown 12/22/2021 8:46 AM CDT 12/22/2021 8:50 AM CDT Real Time Content Herbert DO SEND OUTS Final Result [facility] [address] [place] [address], [place] * ANTI HIV 1/2 (12/22/2021 8:46 AM CDT) HIV-1/HIV-2 ANTIBODY Non-Reacti ve Non-Reacti ve 12/22/2021 5:56 PM CDT [facility] Comment:HIV-1 p24 and HIV-1/ HIV-2 Ab not detected. Blood BLOOD SPECIMEN / Unknown Venipuncture / Unknown 12/22/2021 8:46 AM CDT 12/22/2021 8:50 AM CDT Real Time Content Herbert DO SEND OUTS Final Result [facility] [address] [place] [address], [place] from Last 3 Months or Most Recently Relevant to Health Maintenance Insurance [address] [place] [id number] [facility] [address] [place] [id number] [facility] [employer] [address] [place] [id number] [place] [id number] Advance Directives * Full Code (Latest Code [...] AM 12/17/2009 7:54 PM Care Teams Marine Design Engineer Relationship Specialty Start Date End Date Hegland, Elly Mili, MD [address] [place] [address] [address] PCP - General Family Practice 03/13/24 Jillian Fuentes DO [address] [place] [address] [address] Referring Provider Family Practice 01/23/22
--- OUTSIDE RECORDS SUMMARY | 2024-12-31 18:07 | XMS_ITS | Encounter Summary ---
Author Organization [facility] Address [address] [place] [address] Care Team Providers Care Dock Attendant Name Role Phone Zarina Tapia MD Primary Care Provider [phone] Encounter Details Date Type Department Care Team (Late st Contact Info) Description 02/12/2003 [facility] [address] [place] [address] Dana Rolon [facility] [address] [place] [address] DEL W 2 DEG LACERAT-DEL Social History [...] R/O COVID19 05/30/2021 05/30/2021 05/30/2021 6:06 PM HEALTH SCIENCES MANAGER documented as of this encounter Care Teams Dock Attendant Relationship Specialty Start Date End Date Zarina Tapia MD [address] [place] [address] PCP - General 08/29/04 documented as of this encounter
--- OUTSIDE RECORDS SUMMARY | 2024-12-31 18:07 | XMS_ITS | Clinical Summary ---
Author Organization [place] Address [address] [place] [address]. 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
--- OUTSIDE RECORDS SUMMARY | 2024-12-31 18:07 | XMS_ITS | Encounter Summary ---
Author Organization [facility] Address [address] [place] [address] Care Team Providers Care Senior Escrow Officer Name Role Phone Zarina Tapia MD Primary Care Provider [phone] Encounter Details Date Type Department Care Team (Late st Contact Info) Description 02/13/2003 [facility] [address] [place] [address] Gus Olson MD [facility] [address] [place] [address] ADJUSTMENT DISORDER NOS Social History Tobacco Use [...] R/O COVID19 05/30/2021 05/30/2021 05/30/2021 6:06 PM DANDY TENDER documented as of this encounter Care Teams Senior Escrow Officer Relationship Specialty Start Date End Date Zarina Tapia MD [address] [place] [address] PCP - General 08/29/04 documented as of this encounter
--- NOTE | 2024-12-31 18:50 | CRLHL7_ITS ---
For Patients: As a result of the Century Cures Act, medical imaging exams and procedure reports are released immediately into your electronic medical record. You may view this report before your referring provider. If you have questions, please contact your health care provider. INDICATION: Chest pain. TECHNIQUE: Chest 2 view. COMPARISON: Chest radiograph 04/08/2023. FINDINGS: Cardiovascular: Heart size and pulmonary vasculature are within normal limits. Lungs and pleural spaces: The lungs are clear. No sign of pleural effusion. No pneumothorax identified. Bones and soft tissues: Surgical clips right upper quadrant. The bones are unremarkable. IMPRESSION: No acute cardiopulmonary findings. Dictated by Madeline Hyde MD @ 12/31/2024 7:12:37 PM (Electronically Signed)
[2024-12-31 19:18] LABS: Hematocrit 43.2 % (33.0-51.0); Hemoglobin* 14.5 gm/dL (12.0-16.0); Immature Granulocytes Abs Auto 0.01 K/uL (0.00-0.30); Immature Granulocytes Pct Auto 0.1 %; Lymphocytes Absolute Auto 1.73 K/uL (0.90-2.90); Mean Corpuscular HGB Conc 34 gm/dL (32-36); Mean Corpuscular Hemoglobin 27 pg (26-34); Mean Corpuscular Volume 81 fL (80-100); RDW Coefficient of Variation % 12.1 % (11.5-15.5); Red Blood Count 5.32 m/uL (4.00-5.20); White Blood Count* 7.18 K/uL (4.50-11.00)
[2024-12-31 19:20] LABS: Slide Review Reflex No
[2024-12-31 19:21] LABS: Troponin, Point-of-Care* 0.01 ng/ml (0.01-0.04)
--- NOTE | 2024-12-31 19:24 | ED_ITS ---
HPI - Chest Pain General Date Seen: 12/31/24 Chief Complaint: Chest Pain Stated Complaint: chest pain/pressure Time Seen by Provider: 12/31/24 18:45 Source: patient Mode of arrival: ambulatory Limitations: no limitations History of Present Illness HPI narrative: Patient is a 34 year female presenting to the emergency department for chest pain. She states while 17:30 while she was driving a from work she started developing some midsternal chest pain. Describes it as a sharp sensation was some associated shortness of breath. Pain is not worse with deep breath but she states feels like his heart take deep breath. His having had symptoms like this before. No family history of heart disease. No other medical issues. No history of blood clots. No recent travel. Denies hemoptysis, recent surgeries, history of cancer, leg swelling, prior blood clots, hormone use. Pain has been constant and nothing seems to make it better or worse. Denies headache, vision changes, abdominal pain, diarrhea, constipation, lightheadedness, dizziness, weakness, numbness. Denies radiation of the discomfort. No recent viral infections. Related Data Home Medications ?Medication ?Instructions ?Recorded ?Confirmed semaglutide (weight loss) 0.25 0.25 mg subcut 04/08/24 04/08/24 mg/0.5 mL subcutaneous pen injector ([employer]) bupropion HCl 150 mg 24 hr tablet, 150 mg PO QAM 12/3112/31/24 extended release Previous Rx's ?Medication ?Instructions ?Recorded fluticasone propionate 50 1 spray intranasal QDAY #16 grams 04/08/24 mcg/actuation nasal spray,suspension Allergies Allergy/AdvReac Type Severity Reaction Status Date / Time No Known Drug Allergies Allergy Verified 12/31/24 18:24 Review of Systems Status of ROS Reports: 10 or more systems reviewed and unremarkable except as noted in History and below [facility] Medical History SUZANNA I (cervical intraepithelial neoplasia I) ?N87.0 - Mild cervical dysplasia (ICD-10) Vitamin D deficiency ?E55.9 - Vitamin D deficiency, unspecified (ICD-10) ASCUS (atypical squamous cells of undetermined significance) on gynecologic Papanicolaou smear complicating , antepartum Hidradenitis ?L73.2 - Hidradenitis suppurativa (ICD-10) Surgical History Hx laparoscopic cholecystectomy ?Z90.49 - Acquired absence of other specified parts of digestive tract (ICD- 10) Family History Other Diabetes High cholesterol Social History Smoking Status: Never smoker Do you use any of these nicotine containing products: None Non-prescribed substance use: denies use Exam Narrative Exam Narrative: Const: Well-nourished, Well-developed, in mild distress Eyes: PERRL, no conjunctival injection, and symmetrical lids HENT: Atraumatic external nose and ears. Moist mucous membranes. Neck: Symmetric, trachea midline, No thyromegaly. CVS: RRR, No murmurs or gallops. Peripheral pulses 2+ and equal in all extremities RESP: Unlabored respiratory effort. Clear to auscultation bilaterally. GI: Nontender/Nondistended, No rebound or guarding. MSK:Extremities w/o deformity, Normal Active ROM, mild tenderness to palpation of the chest that does not exactly reproduce her pain Skin: Warm, Dry. No rashes or lesions. Neuro: Normal Muscle tone, No focal neurological deficits. Psych: Awake, Alert, & Oriented x3. Appropriate mood and affect. Const Vital Signs, click to edit/add: Vital Signs - 24 hr 12/31/24 18:26 Temperature 97.8 F Pulse Rate [Pulse Oximeter] 92 Respiratory Rate 16 Blood Pressure [Right Upper Arm] 131/81 Pulse Oximetry 97 Oxygen Delivery Method Room Air Course Vital Signs Vital signs: Initial Vital Signs Temperature 97.8 F 12/31/24 18:26 Temperature Source Temporal Artery Scan 12/31/24 18:26 Pulse Rate 92 12/31/24 18:26 Respiratory Rate 16 12/31/24 18:26 Blood Pressure 131/81 12/31/24 18:26 Blood Pressure Mean 97 12/31/24 18:26 Pulse Oximetry 97 12/31/24 18:26 Oxygen Delivery Method Room Air 12/31/24 18:26 Vital Signs Temperature 97.8 F 12/31/24 18:26 Pulse Rate 92 12/31/24 18:26 Respiratory Rate 16 12/31/24 18:26 Blood Pressure 131/81 12/31/24 18:26 Pulse Oximetry 97 12/31/24 18:26 Oxygen Delivery Method Room Air 12/31/24 18:26 Temperature 97.8 F 12/31/24 18:26 Pulse Rate 92 12/31/24 18:26 Respiratory Rate 16 12/31/24 18:26 Blood Pressure 131/81 12/31/24 18:26 Pulse Oximetry 97 12/31/24 18:26 Oxygen Delivery Method Room Air 12/31/24 18:26 MDM - Chest Pain MDM Narrative Medical decision making narrative: Patient is a 34-year-old female presenting for chest pain. The differential diagnosis of chest pain is broad and includes common etiologies such as musculoskeletal strain, GERD, pneumonia, etc. More serious etiologies considered include PE, coronary artery disease, pneumothorax, aortic dissection, aortic aneurysm. She is PERC negative and PE can be ruled out. She otherwise appears stable aortic dissection and aortic aneurysm seem unlikely. Will do chest x-ray the for signs pneumonia or pneumothorax. EKG and troponin order to look for cardiac disease. Also order CBC, BMP, magnesium, viral swabs. Patient's lab work returned showing no acute concerning abnormalities. EKG within normal limits. Initial troponin within normal limits. Will repeat troponin at the 2 hour zenobia. Chest x-ray reviewed by myself the radiologist shows no acute concerning symptoms. Repeat troponin also within normal limits. At this point I cannot say exactly what is causing her chest pain but I have ruled out the emergencies. Patient is safe to discharge. Lab Data Labs: Lab Results 12/31/24 12/31/24 12/31/24 Range/Units 18:50 18:55 19:53 WBC 7.18 (4.50-11.00) K/uL RBC 5.32 H (4.00-5.20) m/uL Hgb 14.5 (12.0-16.0) gm/dL Hct 43.2 (33.0-51.0) % MCV 81 (80-100) fL MCH 27 (26-34) pg MCHC 34 (32-36) gm/dL RDW Coeff of Minnie 12.1 (11.5-15.5) % Plt Count 271 (140-440) K/uL Neut % (Auto) 62.5 (42.0-72.0) % Lymph % (Auto) 24.1 (20-44) % [place] % (Auto) 9.6 (0.0-11.0) % Eos % (Auto) 3.1 (0.0-7.0) % Baso % (Auto) 0.6 (0.0-3.0) % Neut # (Auto) 4.49 (1.7-7.0) K/uL Lymph # (Auto) 1.73 (0.90-2.90) K/uL [place] # (Auto) 0.70 (0.00-0.90) K/UL Eos # (Auto) 0.22 (0.00-0.50) K/uL Baso # (Auto) 0.04 (0.00-0.30) K/uL Abs Immat Gran (auto) 0.01 (0.00-0.30) K/uL Imm/Tot Granulo (auto) 0.1 % Sodium 136 (135-149) mmol/L Potassium 3.8 (3.6-5.1) mmol/L Chloride 100 (96-114) mmol/L Carbon Dioxide 28 (20-32) mmol/L Anion Gap 8 (7-15) mEq/L BUN 13 (5-24) mg/dL Creatinine 0.9 (0.5-1.5) mg/dL Estimated Creat Clear 72.17 Estimated GFR 86 ml/min Glucose 90 (60-115) mg/dL Calcium 10.0 (8.4-10.6) mg/dL Magnesium 2.0 (1.5-2.6) mg/dL SARS-CoV-2 (PCR) Negative SARS-CoV-2 (Negative) Influenza Type A (PCR) Negative PCR FLU A (Negative) Influenza Type B (PCR) Negative PCR FLU B (Negative) RSV (PCR) Negative PCR RSV (Negative) POC Troponin I 0.01 (0.01-0.04) ng/ml Imaging Data Chest x-ray: Attestation: I have reviewed the pertinent imaging results. Radiologist's impression: No acute cardiopulmonary findings. Dictated by Madeline Hyde MD @ 12/31/2024 7:12:37 PM ECG Data Attestation: I personally reviewed and interpreted this ECG as follows: Prior ECG tracings: not available for review Interpretation: Normal sinus rhythm with a rate of 83 beats per minute, normal intervals, normal axis, no ST or T-wave abnormalities. Discharge Plan Discharge Clinical Impression: Atypical chest pain Patient Disposition: Home, Self-Care Condition: Stable Instructions: Noncardiac Chest Pain (ED) Additional Instructions: I cannot say exactly what is causing chest pain but we have ruled out other emergent issues. If pain persist follow-up with the primary care provider. Return to emergency department for new or worsening symptoms. Prescriptions: No Action Wegovy 0.25 mg/0.5 mL pen injector 0.25 mg subcut fluticasone propionate 50 mcg/actuation spray,suspension 1 spray intranasal QDAY Qty: 16 0RF Rx Instructions: administer into each nostril bupropion HCl 150 mg tablet extended release 24 hr 150 mg PO QAM Follow Up/Referrals: Elly Marks MD [Primary Care Provider, Obstetrics] Stand Alone Forms: MyHealth Info Instructions
[2024-12-31 19:30] LABS: Chloride* 100 mmol/L (96-114); Potassium* 3.8 mmol/L (3.6-5.1); Sodium* 136 mmol/L (135-149)
[2024-12-31 19:33] LABS: Anion Gap 8 mEq/L (7-15); Blood Urea Nitrogen* 13 mg/dL (5-24); Calcium* 10.0 mg/dL (8.4-10.6); Carbon Dioxide* 28 mmol/L (20-32); Creatinine* 0.9 mg/dL (0.5-1.5); Est. Creatinine Clearance* 72.17; Estimated Glomerular Filt Rate 86 ml/min; Glucose* 90 mg/dL (60-115)
[2024-12-31 20:34] LABS: PCR FLU A Negative PCR FLU A (Negative); PCR FLU B Negative PCR FLU B (Negative); PCR RSV Negative PCR RSV (Negative); SARS PCR* Negative SARS-CoV-2 (Negative)
[2024-12-31 21:14] LABS: Troponin, Point-of-Care* 0.01 ng/ml (0.01-0.04)
== END 2024-12-31 21:26 | disposition home or self-care (01) ==
PROVIDERS: Emergency Provider Student in an Organized Health Care Education/Training Program; PCP Family Medicine
DX: R07.9 Chest pain, unspecified (principal)
CPT/HCPCS: 36415; 71046; 80048; 83735; 84484; 85025; 87631; 93005; 99284